=== PATIENT | female | born 1960 | race Two or more races ===

== ENCOUNTER 2022-09-18 08:05 | Outpatient (RCR) | payer OTHER, SELFPAY ==
--- NOTE | ~2022-09-18 | XR_ITS ---
EXAMINATION: XR FOOT, RIGHT CLINICAL INFORMATION: Nonhealing wound COMPARISON: None available. TECHNIQUE: AP, lateral, and oblique views of the right foot. FINDINGS: Band-Aid, soft tissue swelling around the great toe subtle radiolucencies in the diaphysis of the distal phalanx and middle phalanx raising concern for possible early osteomyelitis. No subcutaneous emphysema. Bone alignment satisfactory. Underlying mild DJD. There are small posterior and inferior calcaneal spurs. XR/XR foot RT min 3V IMPRESSION: * Subtle radiolucencies in the diaphysis of the distal phalanx and middle phalanx raising concern for possible early osteomyelitis. MRI could be utilized for further investigation if clinically indicated. * Underlying mild DJD.
[2022-10-23 09:28] LABS: MANUAL DIFF FLAG NO
[2022-10-23 09:39] LABS: Basophils Absolute Auto 0.1 X10*3/uL (0.0-0.2); Basophils Percent Auto 0.5 % (0-2); Eosinophils Absolute Auto 0.2 X10*3/uL (0.0-0.4); Eosinophils Percent Auto 2.3 % (0-4); Hematocrit 40.1 % (37.0-47.0); Hemoglobin 12.6 g/dl (12.0-16.0); Imm Gran Abs Auto 0.04 X10*3/uL (0.00-0.03); Imm Gran Pct Auto 0.4 % (0.0-0.4); Lymphocytes Absolute Auto 3.3 X10*3/uL (1.2-4.9); Lymphocytes Percent Auto 32.8 % (20-40); Mean Corpuscular HGB Conc 31.4 g/dl (31.0-35.0); Mean Corpuscular Hemoglobin 26.6 pg (27.0-33.0); Mean Corpuscular Volume 84.6 fL (80.0-98.0); Mean Platelet Volume 10.9 fL (9.4-12.3); Monocytes Absolute Auto 0.5 X10*3/uL (0.1-1.2); Monocytes Percent Auto 5.1 % (2-11); Neutrophils Absolute Auto 5.9 x10*3/uL (2.0-8.3); Neutrophils Percent Auto 58.9 % (45-73); Platelet Count 222 X10*3/uL (160-400); Red Blood Count 4.74 X10*6/uL (4.20-5.50); Red Cell Distribution Width 17.1 % (11.0-16.0)
[2022-10-23 09:48] LABS: Estimated Average Glucose 166 mg/dL; Hemoglobin A1c % 7.4 %
[2022-10-23 10:36] LABS: Anion Gap 14 (12-20); Blood Urea Nitrogen 25 mg/dL (9-16); C Reactive Protein 2.13 mg/dL (< or = 0.50); Carbon Dioxide 27 mmol/L (22-29); Chloride 103 mmol/L (96-108); Estimated Glomerular Filt Rate 41; Glucose Random 136 mg/dL (60-115); Potassium 3.8 mmol/L (3.3-5.1); Sodium 140 mmol/L (135-145)
[2022-10-23 10:48] LABS: Erythrocyte Sedimentation Rate 51 MM/HR (0-20)
== END 2023-05-15 14:38 | disposition home or self-care (01) ==
LOC: HO.WCC 08:05
PROVIDERS: PCP Internal Medicine; Visit Provider Physician Assistant
DX: Z09 Encounter for follow-up examination after completed treatment for conditions other than malignant neoplasm (principal); E10.40 Type 1 diabetes mellitus with diabetic neuropathy, unspecified; I10 Essential (primary) hypertension; F17.210 Nicotine dependence, cigarettes, uncomplicated; Z86.31 Personal history of diabetic foot ulcer
CPT/HCPCS: 11042; 15275; 36415; 73630; 80048; 83036; 84134; 85025; 85652; 86140; 99212; Q4187

== ENCOUNTER 2023-06-10 18:12 | Inpatient (IN) | payer OTHER, SELFPAY ==
--- NOTE | ~2023-06-10 | XR_ITS ---
EXAMINATION: XR FOOT, RIGHT CLINICAL INFORMATION: Pain COMPARISON: Right foot radiograph from 10/23/2022 TECHNIQUE: AP, lateral, and oblique views of the right foot. FINDINGS: No acute visible fracture or dislocation. Multi joint arthritic changes. Plantar calcaneal heel spur. Achilles tendon enthesopathy. Spurring the dorsal midfoot. Joint spaces and alignment are maintained. Soft tissues are unremarkable. XR/XR foot RT min 3V IMPRESSION: 1. No acute visible fracture or dislocation. 2. Multi joint arthritic changes. 3. Plantar calcaneal heel spur. 4. Achilles tendon enthesopathy.
--- NOTE | ~2023-06-10 | CT_ITS ---
EXAMINATION: CT FOOT WITH CONTRAST, RIGHT CLINICAL INFORMATION: Rule out osteomyelitis. COMPARISON: Radiograph dated 06/10/2023 TECHNIQUE: Multidetector volumetric imaging was obtained through the right foot following intravenous administration of 85 mL Omnipaque 350. Multiplanar reformatted images in coronal and sagittal orientations were submitted. This CT examination was performed using dose optimization techniques as appropriate, variously including the following: *Automated exposure control *Adjustment of mA and/or kV according to patient size (this includes techniques or standardized protocols for targeted exams where dose is matched to indication/reason for exam; i.e. extremities or head) *Use of iterative reconstruction technique DLP: 167 mGy-cm FINDINGS: There is a wound at the plantar aspect of the great toe proximal phalanx with extension into the first intermetatarsal space there is a peripherally enhancing collection in the wound measuring 2 x 0.7 x 0.6 cm. No additional collections are identified. Surrounding soft tissues are swollen and edematous. The skin is thickened. Bone mineralization appears normal. No appreciable sites of focal osteolysis are identified in the underlying first and second metatarsals and phalanges. There is mild osteoarthritis in multiple joints in the forefoot including the first MTP, great toe IP, and other interphalangeal joints. No erosions. Mild osteoarthritis in the naviculocuneiform joints. Talocrural and subtalar joints appear relatively well-preserved. There is diffuse fatty atrophy of the intrinsic foot musculature. Tendons are unremarkable. No tenosynovitis identified. CT/CT foot RT w IV con IMPRESSION: 1. A 2 cm abscess in the plantar soft tissues of the great toe proximal phalanx with extension into the first intermetatarsal space. No CT findings of osteomyelitis. 2. Mild multifocal osteoarthritis in the forefoot. 3. Diffuse fatty atrophy of the intrinsic foot musculature.
[2023-06-10 18:45] VITALS: BP 149/94; PULSE 117; RESP 16; TEMP 37.1; O2SAT 94; BMI 39.9
--- NOTE | 2023-06-10 18:48 | ED.GENADULT ---
HPI - General Adult General Chief complaint: General Medical Stated complaint: skin graft on foot, red and swollen. t-1 Time Seen by Provider: 06/10/23 20:04 Source: patient and family Mode of arrival: ambulatory History of Present Illness HPI narrative: 62-year-old female who arrives with complaints of right foot pain and swelling with redness and the pain has increased and she reports that it is stabbing in nature she also describes subjective fevers as well as chills. She otherwise denies any shortness of breath or chest pain. Related Data Home Medications Medication Instructions Recorded Confirmed acetaminophen 650 mg 1,300 mg PO BID 06/10/23 06/10/23 tablet,extended release (Tylenol Arthritis Pain) aspirin 81 mg tablet,delayed 81 mg PO DAILY 06/10/23 06/10/23 release atorvastatin 40 mg tablet 40 mg PO DAILY 06/10/23 06/10/23 dulaglutide 4.5 mg/0.5 mL 4.5 mg subcut SA 06/10/23 06/10/23 subcutaneous pen injector (Trulicity) empagliflozin 25 mg tablet 25 mg PO DAILY 06/10/23 06/10/23 (Jardiance) insulin glargine 100 unit/mL (3 15 unit subcut BEDTIME 06/10/23 06/10/23 mL) subcutaneous pen (Lantus Solostar U-100 Insulin) losartan 25 mg tablet 25 mg PO DAILY 06/10/23 06/10/23 metformin 500 mg tablet,extended 500 mg PO DAILY 06/10/23 06/10/23 release 24 hr methadone 10 mg/mL oral 100 mg PO DAILY 06/10/23 concentrate (Methadose) omeprazole 40 mg capsule,delayed 40 mg PO BID 06/10/23 06/10/23 release pregabalin 300 mg capsule 300 mg PO BID 06/10/23 06/10/23 venlafaxine 150 mg 150 mg PO DAILY 06/10/23 06/10/23 capsule,extended release 24 hr venlafaxine 75 mg capsule,extended 75 mg PO DAILY 06/10/23 06/10/23 release 24 hr Allergies Allergy/AdvReac Type Severity Reaction Status Date / Time No Known Allergies Allergy Verified 06/10/23 18:49 Review of Systems Review of Systems: Pertinent positives and negatives as stated in HPI [facility] Past Medical History Source: nursing notes reviewed Social History Social History Smoked in Last 30 Days: Yes Use of substances other than those prescribed or required for medical reasons: No Advance Directives: No Advance Directives Information Provided: No Physical Exam ED Vital Signs: Vital Signs - 24 hr 06/10/23 18:45 Temperature 98.7 F Pulse Rate 117 H Respiratory Rate 16 Blood Pressure 149/94 H Pulse Oximetry 94 Oxygen Delivery Method Room Air BMI result Body Mass Index 39.9 VITAL SIGNS: Reviewed. GENERAL: Elevated BMI, Well developed, well nourished, in no acute distress. HEAD: Normocephalic/atraumatic EYES: PERRLA, EOMI EARS: Ext canals without abnormality NOSE: Nares patent bilateral OROPHARYNX: no oral lesions noted, posterior pharynx clear NECK: Supple, no adenopathy LUNGS: Normal breath sounds. No adventitious sounds or accessory muscle use. SpO2<94> CARDIOVASCULAR: Regular rate and rhythm without noted murmurs ABDOMEN: Soft, non-tender, non-distended with bowel sounds. MUSCULOSKELETAL: No tenderness, deformities, or effusions noted on gross inspection. EXTREMITIES: No cyanosis, clubbing or edema. RLE: Erythematous, swollen, palpable DP and PT, noted wound to the plantar surface of the great MTP SKIN: Inspection of the skin reveals no rashes NEUROLOGIC: Alert and oriented x 4. Strength and sensation to light touch were grossly intact x 4. Course Course Course Narrative: 62-year-old female presents for evaluation of right foot pain and swelling for the last 2 days. She has a history of diabetic ulcer to the area. Patient reports a recent skin graft the right foot a little over 1 month ago. Plan for labs including inflammatory markers, blood cultures and an x-ray. Medications Administered Generic Name Dose Route Start Last Admin Trade Name Freq PRN Reason Stop Dose Admin Piperacillin Sod/Tazobactam 100 mls @ 200 mls/hr 06/10/23 22:00 06/10/23 21:48 Sod 4.5 gm/ Sodium Chloride IV 200 mls/hr Q6H TAMIE Administration Sodium Chloride 1,000 mls @ 999 mls/hr 06/10/23 21:14 06/10/23 21:48 Ns IV 06/10/23 22:14 999 mls/hr .Q1H1M ONE Administration Medical Decision Making Medical Decision Making [facility] Narrative: 2100: I suspect infection this is a 62-year-old female with history and clinical presentation consistent with right foot cellulitis and suspected infection especially given underlying history of diabetes and wound to the plantar surface. I reviewed all investigations and hematologic indices there is significant for leukocytosis with left shift but no anemia or thrombocytopenia. Chemistry indices are grossly within normal limits without XOCHITL or electrolytes/acute liver enzyme abnormalities, CRP-7.58. Patient to receive double antibiotics. X-ray of right foot without acute findings and otherwise my interpretation is in agreement with radiology's impression. 1: I discussed case with inpatient hospitalist who accepts admission. Differential Diagnosis Differential Diagnoses: The differential diagnosis associated with the presentation includes Please see the discussion above Admission/Observation Consideration of admission/observation: Escalation of care including admission/observation considered Please see the discussion above Consult Healthcare Provider Management of the patient was discussed with: Hospitalist Please see the discussion above Lab Data [facility] Lab Attestation statement: I reviewed the patient's lab results. Please see the discussion above 06/10/23 19:18 06/10/23 19:18 Labs: Lab Results 06/10/23 Range/Units 19:18 WBC 14.5 H (4.8-10.8) X10*3/uL RBC 5.03 (4.20-5.50) X10*6/uL Hgb 12.9 (12.0-16.0) g/dl Hct 41.2 (37.0-47.0) % MCV 81.9 (80.0-98.0) fL MCH 25.6 L (27.0-33.0) pg MCHC 31.3 (31.0-35.0) g/dl RDW 15.2 (11.0-16.0) % Plt Count 199 (160-400) X10*3/uL MPV 11.4 (9.4-12.3) fL Immature Gran % (Auto) 0.5 H (0.0-0.4) % Neut % (Auto) 79.4 H (45-73) % Lymph % (Auto) 15.2 L (20-40) % [place] % (Auto) 3.9 (2-11) % Eos % (Auto) 0.7 (0-4) % Baso % (Auto) 0.3 (0-2) % Lymph # (Auto) 2.2 (1.2-4.9) X10*3/uL [place] # (Auto) 0.6 (0.1-1.2) X10*3/uL Eos # (Auto) 0.1 (0.0-0.4) X10*3/uL Baso # (Auto) 0.0 (0.0-0.2) X10*3/uL Abs Immat Gran (auto) 0.07 H (0.00-0.03) X10*3/uL Absolute Neuts (auto) 11.6 H (2.0-8.3) x10*3/uL Absolute Nucleated RBC 0.000 (0.0-0.012) X10*3/uL Nucleated RBC % (auto) 0.0 (0.0-0.2) /100WBC Smear Tech's Comments VERIFIED ESR 51 H (0-20) MM/HR Sodium 136 (135-145) mmol/L Potassium 4.3 (3.3-5.1) mmol/L Chloride 101 (96-108) mmol/L Carbon Dioxide 26 (22-29) mmol/L Anion Gap 13 (12-20) BUN 15 (9-16) mg/dL Creatinine 1.06 (0.5-1.4) mg/dL Estim Creat Clear Calc 62.0 Estimated GFR 52 Random Glucose 160 H (60-115) mg/dL Lactic Acid 1.9 (0.5-2.0) mmol/L Calcium 9.3 (8.4-10.2) mg/dL Total Bilirubin 0.4 (0.0-1.0) mg/dL AST 10 (5-31) U/L ALT 11 (0-31) U/L Alkaline Phosphatase 134 H (39-117) U/L C-Reactive Protein 7.58 H (< or = 0.50) mg/dL Total Protein 8.0 (6.5-8.0) g/dL Albumin 3.7 (3.5-5.0) g/dL Lipase 9 (8-78) U/L Radiology Impression Discussion of test interpretation with radiology: I have reviewed the radiologist's reading. Radiologist Impression: Please see the discussion above External Record Review External record reviewed: Outpatient record, Prior outpatient labs and Prior outpatient radiology Chronic Conditions Patient?s care impacted by: Diabetes and Hypertension Critical Care Time Critical Care Time Critical Care Time: Yes Total Critical Care Time: 30 Attestation: I personally attest to this time spent taking care of the patient. Discharge Plan Discharge Clinical Impression: Sepsis, Cellulitis of foot, right, Non-healing ulcer Patient Disposition: Admitted As Inpatient
[2023-06-10 19:29] LABS: Lymphocytes Absolute Auto 2.2 X10*3/uL (1.2-4.9); PLT CLUMP 1; Red Cell Distribution Width 15.2 % (11.0-16.0); SCAN SMEAR FLAG 1
[2023-06-10 19:30] LABS: Basophils Percent Auto 0.3 % (0-2); Eosinophils Absolute Auto 0.1 X10*3/uL (0.0-0.4); Eosinophils Percent Auto 0.7 % (0-4); Hematocrit 41.2 % (37.0-47.0); Hemoglobin 12.9 g/dl (12.0-16.0); Imm Gran Abs Auto 0.07 X10*3/uL (0.00-0.03); Imm Gran Pct Auto 0.5 % (0.0-0.4); Lymphocytes Percent Auto 15.2 % (20-40); MANUAL DIFF FLAG SCAN; Mean Corpuscular HGB Conc 31.3 g/dl (31.0-35.0); Mean Corpuscular Hemoglobin 25.6 pg (27.0-33.0); Mean Corpuscular Volume 81.9 fL (80.0-98.0); Mean Platelet Volume 11.4 fL (9.4-12.3); Monocytes Absolute Auto 0.6 X10*3/uL (0.1-1.2); Monocytes Percent Auto 3.9 % (2-11); Neutrophils Absolute Auto 11.6 x10*3/uL (2.0-8.3); Neutrophils Percent Auto 79.4 % (45-73); Red Blood Count 5.03 X10*6/uL (4.20-5.50)
[2023-06-10 19:43] LABS: Lactic Acid 1.9 mmol/L (0.5-2.0)
[2023-06-10 19:48] LABS: Alanine Aminotransferase 11 U/L (0-31); Albumin Level 3.7 g/dL (3.5-5.0); Alkaline Phosphatase 134 U/L (39-117); Anion Gap 13 (12-20); Aspartate Amino Transferase 10 U/L (5-31); Bilirubin Total 0.4 mg/dL (0.0-1.0); Blood Urea Nitrogen 15 mg/dL (9-16); C Reactive Protein 7.58 mg/dL (< or = 0.50); Calcium 9.3 mg/dL (8.4-10.2); Carbon Dioxide 26 mmol/L (22-29); Chloride 101 mmol/L (96-108); Estimated Glomerular Filt Rate 52; Glucose Random 160 mg/dL (60-115); Lipase 9 U/L (8-78); Potassium 4.3 mmol/L (3.3-5.1); Sodium 136 mmol/L (135-145)
[2023-06-10 19:57] LABS: White Blood Count 14.5 X10*3/uL (4.8-10.8)
[2023-06-10 19:59] LABS: Platelet Count 199 X10*3/uL (160-400)
[2023-06-10 20:00] LABS: SLIDE REVIEW VERIFIED
[2023-06-10 20:01] LABS: Erythrocyte Sedimentation Rate 51 MM/HR (0-20)
--- NOTE | 2023-06-10 21:14 | P.HPHOSP_ITS ---
History of Present Illness Date of Service: 06/10/23 Chief Complaint: Foot infection This is a 62-year-old female with pertinent history of insulin-dependent diabetes mellitus, mixed hyperlipidemia, essential hypertension, gastroesophageal reflux disease, mood disorder who presents to the emergency department for evaluation of redness and swelling of right foot. Patient states it started 1 day prior to presentation. Also has pain while walking. The redness and swelling has progressed in the last 24 hours. Denies fever but does have associated chills. No purulent drainage from the right foot. No chest discomfort, palpitations, shortness of breath, abdominal pain, changes in urinary or bowel habits. In the emergency department, patient was found to be septic. Review of Systems 2 Constitutional: Constitutional: Reports fatigue and Reports lethargy Cardiovascular: Cardiovascular: Reports no additional cardiovascular complaints Respiratory: Respiratory: Reports no additional respiratory complaints Gastrointestinal: Gastrointestinal: Reports no additional gastrointestinal complaints Genitourinary: Genitourinary: Reports no additional female genitourinary complaints Musculoskeletal: Musculoskeletal: Reports arthralgias Endocrine: Endocrine: Reports fatigue [facility] Medical History Mood disorder Insulin dependent type 2 diabetes mellitus Essential hypertension Mixed hyperlipidemia Pertinent family history: No family history of early CAD Social History Patient Tobacco Use Status: Never used Tobacco Smoked in Last 30 Days: Yes Use of substances other than those prescribed or required for medical reasons: No Advance Directives: No Advance Directives Information Provided: No Nutrition Risks: No Nutritional Risk Meds Allergies Allergy/AdvReac Type Severity Reaction Status Date / Time No Known Allergies Allergy Verified 06/10/23 18:49 Active Medications: Current Medications Acetaminophen (Acetaminophen 325 Mg Tablet) 650 mg PO Q6H PRN PRN Reason: Pain, Mild (Pain Scale 1-3) Piperacillin Sod/Tazobactam (Sod 3.375 gm/ Sodium Chloride) 50 mls @ 100 mls/hr IV ONCE ONE Stop: 06/10/23 21:38 Vancomycin HCl (Vancomycin/Ns) 2,000 mg in 500 mls @ 250 mls/hr IV ONCE ONE Stop: 06/10/23 23:14 Melatonin (Melatonin 3 Mg Tablet) 6 mg PO BEDTIME PRN PRN Reason: Insomnia Ondansetron HCl (Ondansetron Hcl 4 Mg/2 Ml Vial) 4 mg IVPUSH Q8H PRN PRN Reason: Nausea and Vomiting Pharmacy Consult (Consult Rx Vancomycin Dosing) 1 each MISCELLANE DAILY PRN PRN Reason: Consult order Sodium Chloride (0.9 % Sodium Chloride Flush 3 Ml Syringe) 3 ml IVFLUSH [facility] Home Medications Medication Instructions Recorded Confirmed Last Taken Type acetaminophen 650 mg 1,300 mg PO BID 06/10/23 06/10/23 06/10/23 History tablet,extended release (Tylenol Arthritis Pain) aspirin 81 mg tablet,delayed 81 mg PO DAILY 06/10/23 06/10/23 06/10/23 History release atorvastatin 40 mg tablet 40 mg PO DAILY 06/10/23 06/10/23 06/10/23 History dulaglutide 4.5 mg/0.5 mL 4.5 mg subcut SA 06/10/23 06/10/23 06/08/23 History subcutaneous pen injector (Trulicity) empagliflozin 25 mg tablet 25 mg PO DAILY 06/10/23 06/10/23 06/10/23 History (Jardiance) insulin glargine 100 unit/mL (3 15 unit subcut BEDTIME 06/10/23 06/10/23 06/09/23 History mL) subcutaneous pen (Lantus Solostar U-100 Insulin) losartan 25 mg tablet 25 mg PO DAILY 06/10/23 06/10/23 06/10/23 History metformin 500 mg tablet,extended 500 mg PO DAILY 06/10/23 06/10/23 06/10/23 History release 24 hr methadone 10 mg/mL oral 100 mg PO DAILY 06/10/23 Unknown History concentrate (Methadose) omeprazole 40 mg capsule,delayed 40 mg PO BID 06/10/23 06/10/23 06/10/23 History release pregabalin 300 mg capsule 300 mg PO BID 06/10/23 06/10/23 06/10/23 History venlafaxine 150 mg 150 mg PO DAILY 06/10/23 06/10/23 06/10/23 History capsule,extended release 24 hr venlafaxine 75 mg capsule,extended 75 mg PO DAILY 06/10/23 06/10/23 06/10/23 History release 24 hr Physical Exam 2 Vital Signs and Narrative: Vital Signs: Last Vital Signs Temp 98.7 F 06/10/23 18:45 Pulse 117 H 06/10/23 18:45 Resp 16 06/10/23 18:45 BP 149/94 H 06/10/23 18:45 Pulse Ox 94 06/10/23 18:45 O2 Del Method Room Air 06/10/23 18:45 BMI result Body Mass Index 39.9 Middle-aged obese female lying in bed in no distress Neck supple, no JVD Regular rate and rhythm, S1-S2 heard Regular breath sounds bilaterally, no wheezing or crackles appreciated Abdomen soft nontender, no guarding, no rigidity Patient is awake, alert and oriented to self, place, time and person ; no focal motor deficit Musculoskeletal: Right foot with erythema, swelling Psych: Normal mood No pedal edema Results Labs 06/10/23 19:18 06/10/23 19:18 Labs: Laboratory Results - last 24 hr 06/10/23 19:18 MCV 81.9 MCH 25.6 L MCHC 31.3 RDW 15.2 Plt Count 199 MPV 11.4 Immature Gran % (Auto) 0.5 H Neut % (Auto) 79.4 H Lymph % (Auto) 15.2 L [place] % (Auto) 3.9 Eos % (Auto) 0.7 Baso % (Auto) 0.3 Lymph # (Auto) 2.2 [place] # (Auto) 0.6 Eos # (Auto) 0.1 Baso # (Auto) 0.0 Abs Immat Gran (auto) 0.07 H Absolute Neuts (auto) 11.6 H Absolute Nucleated RBC 0.000 Nucleated RBC % (auto) 0.0 Smear Tech's Comments VERIFIED ESR 51 H Anion Gap 13 Estim Creat Clear Calc 62.0 Estimated GFR 52 Random Glucose 160 H Lactic Acid 1.9 Calcium 9.3 Total Bilirubin 0.4 AST 10 ALT 11 Alkaline Phosphatase 134 H C-Reactive Protein 7.58 H Total Protein 8.0 Albumin 3.7 Lipase 9 Imaging Radiologist's Impressions: Impressions Foot X-Ray 06/10/23 19:45 IMPRESSION: 1. No acute visible fracture or dislocation. 2. Multi joint arthritic changes. 3. Plantar calcaneal heel spur. 4. Achilles tendon enthesopathy. Assessment and Plan (1) Sepsis: Status: Acute (2) Cellulitis of foot, right: Status: Acute Plan This is a 62-year-old female with pertinent history of insulin-dependent diabetes mellitus, mixed hyperlipidemia, essential hypertension, gastroesophageal reflux disease, mood disorder who presents to the emergency department for evaluation of redness and swelling of right foot. #. Sepsis due to right foot cellulitis: Resuscitated with IV crystalloids. Initiating empiric IV antibiotics. Lactic acid and blood culture obtained #. Insulin-dependent diabetes mellitus: Reduce basal home insulin. Initiating Accu-Cheks with sliding scale insulin #. Essential hypertension: Hold antihypertensives the setting of sepsis #. Mixed hyperlipidemia: On statin #. Mood disorder: Continue home mood stabilizers #. Gastroesophageal reflux disease: On PPI #. Obesity: Counseled regarding diet and exercise #. FIGUEROA: Noncompliant with CPAP at home Med rec pending DVT prophylaxis: Lovenox Admit as inpatient and will require two night minimum hospital stay for IV antibiotics Quality Stroke Does the patient have a stroke diagnosis?: No VTE Prior VTE?: No VTE Risk Level:: Medical - moderate - high VTE Device Contraindication: Treatment Not Indicated VTE Drug Contraindication: N/A - Med Ordered
--- NOTE | 2023-06-10 21:27 | PHA.MEDREC ---
Pharmacy Consult ? Medication Reconciliation Pharmacy has completed the medication reconciliation. Patient reported medications. Report methadone from 100 mg from [facility] and that she took her AM dose, RN will need to verify dose in the morning. Sena Dennison, PaolaD
--- NOTE | 2023-06-10 21:30 | PC.NURSE ---
pt a&ox4, respirations even and unlabored. pt reports having sudden onset of right foot pain since yesterday. pt reports previously she had a skin graft on the right foot due to a diabetic foot ulcer. pt right foot red and warm to touch, pt left calf has a red area that is warm to touch that pt denies pain to. pt denies n/v/d and chest pain.
[2023-06-10] MEDS: 0.9 % Sodium Chloride 1,000 ML 999 ML IV (21:48)
[2023-06-10] MEDS: Piperacillin Sodium/Tazobactam 4.5 GM in 0.9 % Sodium Chloride 100 ML IV (21:48)
--- NOTE | 2023-06-10 22:24 | PHA.PROG ---
Admission Date/Time: June 10, 2023 21:12 Indication: Cellulitis Weight in k.058 kg Adjusted body weight in K.2 kg [place] body weight in K.4 kg Obesity Dosing Indication % IBW: 196% Serum Creatinine - Last 168 Hours 06/10/23 19:18 Creatinine 1.06 Estimated CrCl and GFR - Last 168 Hours 06/10/23 19:18 Estim Creat Clear Calc 62.0 Estimated GFR 52 Vancomycin Loading Dose: 2000 mg Current Vancomycin Dosing Regimen: 750 mg Q12H Date and Time for next Vancomycin Level to be drawn: 06/12 @ 0900 Pharmacist Comments on Vancomycin Plan: patient to received the load in the ER 06/10 @ 2230 Maintenance dose vancomycin 750 mg Q12H is scheduled to start 06/11 @ 750 mg. Patient is obese with %IBW > 130% therefore careful monitoring is required due to vancomycin high volume of distrubtion. Current predict AUC due to obesity is 586 with a trugh of 19.3 Pharmacy will monitor renal function daily Level is scheduled for prior to the 4th dose Sena Dennison PharmD Vancomycin dosing will take advantage of [employer] as a clinical decision support tool that uses Bayesian modeling to calculate individual patient's pharmacokinetic parameters and forecast the patient's drug concentration time course with the target goal AUC 24 range of 400 - 600 mg/L/hr.
[2023-06-10] MEDS: vancomycin/NS 2,000 MG/500 ML PLAST..BAG 250 MG IV (22:28)
--- NOTE | 2023-06-10 22:28 | PC.NURSE ---
delay in antibiotic ad,in d/t pt only having one IV access.
[2023-06-10 22:47] VITALS: BP 149/71; PULSE 95; RESP 20; TEMP 37.7
--- NOTE | 2023-06-10 22:52 | PC.NURSE ---
report given to overflow nurse.
[2023-06-10 23:41] VITALS: BP 167/81; PULSE 95; RESP 20; TEMP 37.3; O2SAT 96
[2023-06-10 23:52] LABS: Glucose, Whole Blood 121 mg/dL (60-115)
[2023-06-11] MEDS: Acetaminophen 325 MG TABLET 650 MG PO ×2 (00:06→08:42)
[2023-06-11] MEDS: Melatonin 3 MG TABLET 6 MG PO (00:06)
[2023-06-11] MEDS: Insulin Glargine,Hum.rec.anlog 100 UNIT/ML 10 ML VIAL 12 UNIT SUBCUT (00:08)
[2023-06-11] MEDS: 0.9 % Sodium Chloride Flush 3 ML SYRINGE IVFLUSH ×3 (00:12→16:53)
--- NOTE | 2023-06-11 04:22 | PC.NURSE ---
Scheduled 4.5mg zosyn not stocked in overflow pyxis. Main ED notified and requested delivery 04:00 for administration.
[2023-06-11] MEDS: Piperacillin Sodium/Tazobactam 4.5 GM in 0.9 % Sodium Chloride 100 ML IV ×4 (04:38→21:38)
[2023-06-11 04:58] VITALS: BP 145/69; PULSE 82; RESP 18; TEMP 36.3; O2SAT 96
[2023-06-11 05:03] LABS: MANUAL DIFF FLAG NO
[2023-06-11 05:07] LABS: Basophils Percent Auto 0.4 % (0-2); Eosinophils Absolute Auto 0.1 X10*3/uL (0.0-0.4); Eosinophils Percent Auto 1.6 % (0-4); Hematocrit 35.9 % (37.0-47.0); Hemoglobin 11.3 g/dl (12.0-16.0); Imm Gran Abs Auto 0.02 X10*3/uL (0.00-0.03); Imm Gran Pct Auto 0.3 % (0.0-0.4); Lymphocytes Absolute Auto 2.3 X10*3/uL (1.2-4.9); Lymphocytes Percent Auto 29.6 % (20-40); Mean Corpuscular HGB Conc 31.5 g/dl (31.0-35.0); Mean Corpuscular Hemoglobin 25.5 pg (27.0-33.0); Mean Platelet Volume 10.6 fL (9.4-12.3); Monocytes Absolute Auto 0.4 X10*3/uL (0.1-1.2); Monocytes Percent Auto 5.6 % (2-11); Neutrophils Absolute Auto 4.9 x10*3/uL (2.0-8.3); Neutrophils Percent Auto 62.5 % (45-73); Platelet Count 184 X10*3/uL (160-400); Red Blood Count 4.43 X10*6/uL (4.20-5.50); Red Cell Distribution Width 15.1 % (11.0-16.0); White Blood Count 7.9 X10*3/uL (4.8-10.8)
[2023-06-11 05:19] LABS: Anion Gap 13 (12-20); Blood Urea Nitrogen 13 mg/dL (9-16); Calcium 8.4 mg/dL (8.4-10.2); Carbon Dioxide 22 mmol/L (22-29); Chloride 108 mmol/L (96-108); Creatinine Clr Calc Pharmacy 73.8; Estimated Glomerular Filt Rate > 60; Glucose Random 144 mg/dL (60-115); Potassium 3.4 mmol/L (3.3-5.1); Sodium 140 mmol/L (135-145)
--- NOTE | 2023-06-11 06:04 | PC.NURSE ---
Patient arrived to ED overflow at 23:26 from main ED/[facility], awaiting bed assignment, admitted for right foot cellulitis. Pt is A&Ox4. RT foot red and hot to touch. +pp/cms. Pt is a standby assist to nearby br to void. Pt on zosyn and vancomycin given via intact and patent right wrist/forearm #20 IV. Medicated with ordered tylenol for foot pain with +effect, otherwise denies acute complaints. Pt sleeping in bed for majority of care, Breathing is even and unlabored without distress on RA Spo2 96%. HS poc on arrival 121, given 12 units ordered lantus with snack provided per patient request. -n/v. Bed alarm on and safety measures in place. Pt educated network operations project manager randolph. Will continue to monitor for remainder of medical underwriter's scheduled shift.
[2023-06-11 07:39] LABS: Glucose, Whole Blood 104 mg/dL (60-115)
[2023-06-11] MEDS: Enoxaparin Sodium 40 MG/0.4 ML SYRINGE SUBCUT (08:43)
--- NOTE | 2023-06-11 08:53 | HE.PHANOTE ---
VANCO DOSE ADJUSTMENT BASED ON SCR DOSE CONTINUED AT 750 Q 12. NEXT TROUGH 06/12 @ 0900
[2023-06-11 09:36] VITALS: BP 154/71; PULSE 91; RESP 15; TEMP 36.1; O2SAT 98
--- NOTE | 2023-06-11 09:50 | PC.NURSE ---
pt up to ambulate to the bathroom, pt reports she noted blood to the floor. this RN assessed bottom of pts R foot, noted a small open wound to great toe area. this RN soaked pts foot in a betadine and saline bath, wrapped using 4X4s and flora bandage at this time. bleeding controlled. MD Garcia made aware.
[2023-06-11] MEDS: Atorvastatin Calcium 40 MG TABLET PO (10:37)
[2023-06-11] MEDS: Omeprazole 40 MG CAPSULE.DR PO ×2 (10:37→21:39)
[2023-06-11] MEDS: metFORMIN HCl ER 500 MG TAB.ER.24H PO (10:37)
[2023-06-11] MEDS: Aspirin Enteric Coated 81 MG TABLET.DR PO (10:38)
[2023-06-11] MEDS: Venlafaxine HCl ER 75 MG CAP.ER.24H PO (10:38)
--- NOTE | 2023-06-11 10:41 | HE.PHANOTE ---
RE: methadone Lizzeth David last gave 100mg on 06/08/23; noted that 14 doses were given to [facility]
--- NOTE | 2023-06-11 10:44 | P.PNIM_ITS ---
Subjective Subjective Date of Service: 06/11/23 Interval History: f/u on infect limb wound no complaint of pain, no fever Physical Exam 2 Vital Signs: Vital Signs: Last Vital Signs Temp 97 F 06/11/23 09:36 Pulse 91 06/11/23 09:36 Resp 15 06/11/23 09:36 BP 154/71 H 06/11/23 09:36 Pulse Ox 98 06/11/23 09:36 O2 Del Method Room Air 06/11/23 09:36 BMI result Body Mass Index 39.9 Const: Other: General: AO X 3, no acute distress Resp: CTA bilateral CVS: S1,S2,RRR GI: +BS, NT, no distention Skin: No rash, Right foot with erythema, swelling, open wound to the bottom of her R foot Neuro: motor grossly intact Psych: appropriate affect Musculoskeletal: Objective Data Active Medications Acetaminophen (Acetaminophen 325 Mg Tablet) 650 mg PO Q6H PRN PRN Reason: Pain, Mild (Pain Scale 1-3) Last Admin: 06/11/23 08:42 Dose: 650 mg Documented By: TYAO Aspirin (Aspirin Enteric Coated 81 Mg Tablet.Dr) 81 mg PO DAILY [facility] Last Admin: 06/11/23 10:38 Dose: 81 mg Documented By: TAYO Atorvastatin Calcium (Atorvastatin Calcium 40 Mg Tablet) 40 mg PO DAILY [facility] Last Admin: 06/11/23 10:37 Dose: 40 mg Documented By: TAYO Dextrose (Dextrose 50 % 25 Gm/50 Ml Syringe) 25 gm IVPUSH Q15M PRN; Protocol PRN Reason: per Hypoglycemia Standing Ord. Empagliflozin (Empagliflozin 25 Mg Tablet) 25 mg PO DAILY [facility] Enoxaparin Sodium (Enoxaparin Sodium 40 Mg/0.4 Ml Syringe) 40 mg SUBCUT Q24H [facility] Last Admin: 06/11/23 08:43 Dose: 40 mg Documented By: TAYO Glucose (Glucose Gel 15 Gm Gel..Gram.) 15 gm PO Q15M PRN; Protocol PRN Reason: per Hypoglycemia Standing Ord. Piperacillin Sod/Tazobactam (Sod 4.5 gm/ Sodium Chloride) 100 mls @ 200 mls/hr IV Q6H [facility] Last Infusion: 06/11/23 05:07 Dose: Infused Documented By: PATRICIA Vancomycin HCl 750 mg/ Sodium (Chloride) 265 mls @ 265 mls/hr IV Q12H [facility] Insulin Glargine (Insulin Glargine,Hum.Rec.Anlog 100 Unit/Ml 10 Ml Vial) 12 unit SUBCUT BEDTIME [facility] Last Admin: 06/11/23 00:08 Dose: 12 unit Documented By: PATRICIA Insulin Glargine (Insulin Glargine,Hum.Rec.Anlog 100 Unit/Ml 10 Ml Vial) 15 unit SUBCUT BEDTIME [facility] Insulin Human Lispro (Insulin Lispro 100 Unit/Ml 3 Ml Vial) 0 unit SUBCUT QIDACHS [facility]; Protocol Last Admin: 06/11/23 07:37 Dose: Not Given Documented By: TAYO Non-Admin Reason: No Insulin Coverage Losartan Potassium (Losartan Potassium 25 Mg Tablet) 25 mg PO DAILY [facility]; Protocol Melatonin (Melatonin 3 Mg Tablet) 6 mg PO BEDTIME PRN PRN Reason: Insomnia Last Admin: 06/11/23 00:06 Dose: 6 mg Documented By: PATRICIA Metformin HCl (Metformin Hcl Er 500 Mg Tab.Er.24h) 500 mg PO DAILY [facility] Last Admin: 06/11/23 10:37 Dose: 500 mg Documented By: TAYO Non-Formulary Medication (Dulaglutide [Trulicity]) 4.5 mg SUBCUT SA [facility] Omeprazole (Omeprazole 40 Mg Capsule.Dr) 40 mg PO BID [facility] Last Admin: 06/11/23 10:37 Dose: 40 mg Documented By: TAYO Ondansetron HCl (Ondansetron Hcl 4 Mg/2 Ml Vial) 4 mg IVPUSH Q8H PRN PRN Reason: Nausea and Vomiting Pharmacy Consult (Consult Rx Vancomycin Dosing) 1 each MISCELLANE DAILY PRN PRN Reason: Consult order Pregabalin (Pregabalin 150 Mg Capsule) 300 mg PO BID [facility] Sodium Chloride (0.9 % Sodium Chloride Flush 3 Ml Syringe) 3 ml IVFLUSH QSHIFT [facility] Last Admin: 06/11/23 08:44 Dose: 3 ml Documented By: TAYO Venlafaxine HCl (Venlafaxine Hcl Er 75 Mg Cap.Er.24h) 75 mg PO DAILY [facility] Last Admin: 06/11/23 10:38 Dose: 75 mg Documented By: TAYO Venlafaxine HCl (Venlafaxine Hcl Er 150 Mg Cap.Er.24h) 150 mg PO DAILY [facility] Labs 06/11/23 04:54 06/11/23 04:54 Labs: Laboratory Results - last 24 hr 06/10/23 06/10/23 06/11/23 19:18 23:47 04:54 MCV 81.9 81.0 MCH 25.6 L 25.5 L MCHC 31.3 31.5 RDW 15.2 15.1 Plt Count 199 184 MPV 11.4 10.6 Immature Gran % (Auto) 0.5 H 0.3 Neut % (Auto) 79.4 H 62.5 Lymph % (Auto) 15.2 L 29.6 Glascock % (Auto) 3.9 5.6 Eos % (Auto) 0.7 1.6 Baso % (Auto) 0.3 0.4 Lymph # (Auto) 2.2 2.3 [place]ock # (Auto) 0.6 0.4 Eos # (Auto) 0.1 0.1 Baso # (Auto) 0.0 0.0 Abs Immat Gran (auto) 0.07 H 0.02 Absolute Neuts (auto) 11.6 H 4.9 Absolute Nucleated RBC 0.000 0.000 Nucleated RBC % (auto) 0.0 0.0 Smear Tech's Comments VERIFIED ESR 51 H Anion Gap 13 13 Estim Creat Clear Calc 62.0 73.8 Estimated GFR 52 > 60 POC Glucose 121 H Random Glucose 160 H 144 H Lactic Acid 1.9 Calcium 9.3 8.4 D Total Bilirubin 0.4 AST 10 ALT 11 Alkaline Phosphatase 134 H C-Reactive Protein 7.58 H Total Protein 8.0 Albumin 3.7 Lipase 9 06/11/23 07:35 MCV MCH MCHC RDW Plt Count MPV Immature Gran % (Auto) Neut % (Auto) Lymph % (Auto) Glascock % (Auto) Eos % (Auto) Baso % (Auto) Lymph # (Auto) [place]ock # (Auto) Eos # (Auto) Baso # (Auto) Abs Immat Gran (auto) Absolute Neuts (auto) Absolute Nucleated RBC Nucleated RBC % (auto) Smear Tech's Comments ESR Anion Gap Estim Creat Clear Calc Estimated GFR POC Glucose 104 Random Glucose Lactic Acid Calcium Total Bilirubin AST ALT Alkaline Phosphatase C-Reactive Protein Total Protein Albumin Lipase Assessment and Plan (1) Cellulitis of foot, right: Status: Acute Plan This is a 62-year-old female with pertinent history of insulin-dependent diabetes mellitus, mixed hyperlipidemia, essential hypertension, gastroesophageal reflux disease, mood disorder who presents to the emergency department for evaluation of redness and swelling of right foot. Sepsis due to right foot cellulitis: IV Vanco + Zosyn, ID consult Insulin-dependent diabetes mellitus: Insulin + POC, Essential HTN: Hold antihypertensives the setting of sepsis Mixed hyperlipidemia: On statin Mood disorder: Continue home mood stabilizers Gastroesophageal reflux disease: On PPI Obesity: Counseled regarding diet and exercise FIGUEROA: Noncompliant with CPAP at home DVT prophylaxis: Lovenox need for inpatient: inpatient and will require two night minimum hospital stay for IV antibiotics Quality Stroke Does the patient have a stroke diagnosis?: No VTE Prior VTE?: No VTE Risk Level:: Medical - moderate - high VTE Device Contraindication: Treatment Not Indicated VTE Drug Contraindication: N/A - Med Ordered
[2023-06-11] MEDS: Pregabalin 150 MG CAPSULE 300 MG PO ×2 (11:26→21:39)
[2023-06-11] MEDS: Losartan Potassium 25 MG TABLET PO (11:27)
[2023-06-11] MEDS: Empagliflozin 25 MG TABLET PO (11:27)
[2023-06-11] MEDS: methADONE HCl 20 MG/2 ML ORAL.CONC 100 MG PO (11:28)
[2023-06-11] MEDS: vancomycin HCL 750 MG in 0.9 % Sodium Chloride 250 ML 265 MG IV (11:28)
[2023-06-11 11:55] LABS: Glucose, Whole Blood 161 mg/dL (60-115)
[2023-06-11] MEDS: Insulin Lispro 100 UNIT/ML 3 ML VIAL SUBCUT ×2 (12:01→17:05)
--- NOTE | 2023-06-11 12:37 | MHC.CM.PN ---
PT REPORTS SHE LIVES WITH HER SON AND GRANDDAUGHTER SHE HAS [facility]ILY [facility] RES[facility] AND IS ACTIVE WITH [facility] PT REPORTS SHE HAS A CANE AND A WALKER SHE SAYS SHE HAS A HCP NAMING HER SON AND HER DAUGHTER HER AGENTS-COPY REQUESTED PCP: DEISI CHINCHILLA IMM DELIVERED DCP: [facility] FAM[facility] TO TRANSPORT
--- NOTE | 2023-06-11 16:25 | PC.NURSE ---
[facility] Care [phone]: Patient alert and oriented x 4. Calm and cooperative with care. Receiving Vanc/Zosyn for right foot cellulitis. Right foot swollen and tender to touch with erythema throughout, wound care performed this AM. Tolerated Diabetic diet well with sliding scale insulin in place. Care handed off to Ladonna BOOTH.
[2023-06-11 16:29] VITALS: BP 142/64; PULSE 85; RESP 18; TEMP 36.1; O2SAT 96
[2023-06-11 16:30] LABS: Glucose, Whole Blood 153 mg/dL (60-115)
[2023-06-11 20:42] LABS: Glucose, Whole Blood 148 mg/dL (60-115)
[2023-06-11] MEDS: Insulin Glargine,Hum.rec.anlog 100 UNIT/ML 10 ML VIAL 15 UNIT SUBCUT (21:39)
[2023-06-12 00:39] VITALS: BP 138/72; PULSE 85; RESP 15; TEMP 36.3; O2SAT 95
[2023-06-12] MEDS: vancomycin HCL 750 MG in 0.9 % Sodium Chloride 250 ML 265 MG IV ×3 (00:40→23:04)
[2023-06-12] MEDS: Piperacillin Sodium/Tazobactam 4.5 GM in 0.9 % Sodium Chloride 100 ML IV ×4 (04:27→21:26)
--- NOTE | 2023-06-12 06:08 | PC.NURSE ---
Assumed care pf PT [phone]. PT alert and oriented. PT ambulated to this bathroom independently, gait steady. Wound assessed by this RN- open wound on the bottom of PT's right great toe noted. Wound is dry and no longer bleeding. Wound cleansed and a clean 3x3 with dressing wrap applied to the foot. right wrist IV line patent and intact. PT medicated as per OCT. Report and hand off given to RN, Demesis.
[2023-06-12 06:16] VITALS: BP 148/81; PULSE 82; RESP 15; TEMP 36.1; O2SAT 95
[2023-06-12 06:38] LABS: Creatinine Clr Calc Pharmacy 61.4; Estimated Glomerular Filt Rate 52
[2023-06-12 07:16] LABS: Glucose, Whole Blood 130 mg/dL (60-115)
[2023-06-12] MEDS: Aspirin Enteric Coated 81 MG TABLET.DR PO (08:28)
[2023-06-12] MEDS: methADONE HCl 20 MG/2 ML ORAL.CONC 100 MG PO (08:28)
[2023-06-12] MEDS: Empagliflozin 25 MG TABLET PO (08:28)
[2023-06-12] MEDS: Pregabalin 150 MG CAPSULE 300 MG PO ×2 (08:28→20:29)
[2023-06-12] MEDS: metFORMIN HCl ER 500 MG TAB.ER.24H PO (08:28)
[2023-06-12] MEDS: Venlafaxine HCl ER 150 MG CAP.ER.24H PO (08:28)
[2023-06-12] MEDS: Omeprazole 40 MG CAPSULE.DR PO ×2 (08:28→20:29)
[2023-06-12] MEDS: 0.9 % Sodium Chloride Flush 3 ML SYRINGE IVFLUSH ×3 (08:29→23:07)
[2023-06-12] MEDS: Venlafaxine HCl ER 75 MG CAP.ER.24H PO (08:29)
[2023-06-12] MEDS: Losartan Potassium 25 MG TABLET PO (08:29)
[2023-06-12] MEDS: Atorvastatin Calcium 40 MG TABLET PO (08:29)
[2023-06-12] MEDS: Enoxaparin Sodium 40 MG/0.4 ML SYRINGE SUBCUT (08:56)
[2023-06-12 10:00] LABS: Vancomycin Trough 15.6 mcg/mL (10.0-20.0)
[2023-06-12 11:39] LABS: Glucose, Whole Blood 116 mg/dL (60-115)
[2023-06-12 14:16] VITALS: BP 136/83; PULSE 91; RESP 20; TEMP 36.5; O2SAT 94
--- NOTE | 2023-06-12 15:39 | P.PNIM_ITS ---
Subjective Subjective Date of Service: 06/12/23 Interval History: f/u on infected foot, cellulitis redness is getting better Physical Exam 2 Vital Signs: Vital Signs: Last Vital Signs Temp 97.7 F 06/12/23 14:16 Pulse 91 06/12/23 14:16 Resp 20 06/12/23 14:16 BP 136/83 06/12/23 14:16 Pulse Ox 94 06/12/23 14:16 O2 Del Method Room Air 06/12/23 14:16 BMI result Body Mass Index 39.9 Objective Data Active Medications Acetaminophen (Acetaminophen 325 Mg Tablet) 650 mg PO Q6H PRN PRN Reason: Pain, Mild (Pain Scale 1-3) Last Admin: 06/11/23 08:42 Dose: 650 mg Documented By: TAYO Aspirin (Aspirin Enteric Coated 81 Mg Tablet.) 81 mg PO DAILY [facility] Last Admin: 06/12/23 08:28 Dose: 81 mg Documented By: BREONNA Atorvastatin Calcium (Atorvastatin Calcium 40 Mg Tablet) 40 mg PO DAILY [facility] Last Admin: 06/12/23 08:29 Dose: 40 mg Documented By: BREONNA Dextrose (Dextrose 50 % 25 Gm/50 Ml Syringe) 25 gm IVPUSH Q15M PRN; Protocol PRN Reason: per Hypoglycemia Standing Ord. Empagliflozin (Empagliflozin 25 Mg Tablet) 25 mg PO DAILY [facility] Last Admin: 06/12/23 08:28 Dose: 25 mg Documented By: BREONNA Enoxaparin Sodium (Enoxaparin Sodium 40 Mg/0.4 Ml Syringe) 40 mg SUBCUT Q24H [facility] Last Admin: 06/12/23 08:56 Dose: 40 mg Documented By: BREONNA Glucose (Glucose Gel 15 Gm Gel..Gram.) 15 gm PO Q15M PRN; Protocol PRN Reason: per Hypoglycemia Standing Ord. Piperacillin Sod/Tazobactam (Sod 4.5 gm/ Sodium Chloride) 100 mls @ 200 mls/hr IV Q6H [facility] Last Infusion: 06/12/23 12:13 Dose: Infused Documented By: REILLY Vancomycin HCl 750 mg/ Sodium (Chloride) 265 mls @ 265 mls/hr IV Q12H [facility] Last Infusion: 06/12/23 13:23 Dose: Infused Documented By: REILLY Insulin Glargine (Insulin Glargine,Hum.Rec.Anlog 100 Unit/Ml 10 Ml Vial) 12 unit SUBCUT BEDTIME [facility] Last Admin: 06/11/23 21:21 Dose: Not Given Documented By: JOANNA Non-Admin Reason: Duplicate Order Insulin Glargine (Insulin Glargine,Hum.Rec.Anlog 100 Unit/Ml 10 Ml Vial) 15 unit SUBCUT BEDTIME [facility] Last Admin: 06/11/23 21:39 Dose: 15 unit Documented By: JOANNA Insulin Human Lispro (Insulin Lispro 100 Unit/Ml 3 Ml Vial) 0 unit SUBCUT QIDACHS [facility]; Protocol Last Admin: 06/12/23 11:37 Dose: Not Given Documented By: REILLY Non-Admin Reason: No Insulin Coverage Losartan Potassium (Losartan Potassium 25 Mg Tablet) 25 mg PO DAILY [facility]; Protocol Last Admin: 06/12/23 08:29 Dose: 25 mg Documented By: BREONNA Melatonin (Melatonin 3 Mg Tablet) 6 mg PO BEDTIME PRN PRN Reason: Insomnia Last Admin: 06/11/23 00:06 Dose: 6 mg Documented By: PATRICIA Metformin HCl (Metformin Hcl Er 500 Mg Tab.Er.24h) 500 mg PO DAILY [facility] Last Admin: 06/12/23 08:28 Dose: 500 mg Documented By: BREONNA Methadone HCl (Methadone Hcl 20 Mg/2 Ml Oral.Conc) 100 mg PO DAILY [facility] Last Admin: 06/12/23 08:28 Dose: 100 mg Documented By: BREONNA Non-Formulary Medication (Dulaglutide [Trulicity]) 4.5 mg SUBCUT [facility] Omeprazole (Omeprazole 40 Mg Capsule.Dr) 40 mg PO BID [facility] Last Admin: 06/12/23 08:28 Dose: 40 mg Documented By: BREONNA Ondansetron HCl (Ondansetron Hcl 4 Mg/2 Ml Vial) 4 mg IVPUSH Q8H PRN PRN Reason: Nausea and Vomiting Pharmacy Consult (Consult Rx Vancomycin Dosing) 1 each MISCELLANE DAILY PRN PRN Reason: Consult order Pregabalin (Pregabalin 150 Mg Capsule) 300 mg PO BID [facility] Last Admin: 06/12/23 08:28 Dose: 300 mg Documented By: BROENNA Sodium Chloride (0.9 % Sodium Chloride Flush 3 Ml Syringe) 3 ml IVFLUSH QSHIFT [facility] Last Admin: 06/12/23 08:29 Dose: 3 ml Documented By: BREONNA Venlafaxine HCl (Venlafaxine Hcl Er 75 Mg Cap.Er.24h) 75 mg PO DAILY [facility] Last Admin: 06/12/23 08:29 Dose: 75 mg Documented By: BREONNA Venlafaxine HCl (Venlafaxine Hcl Er 150 Mg Cap.Er.24h) 150 mg PO DAILY [facility] Last Admin: 06/12/23 08:28 Dose: 150 mg Documented By: BREONNA Labs 06/11/23 04:54 06/12/23 05:50 Labs: Laboratory Results - last 24 hr 06/11/23 06/11/23 06/12/23 16:26 20:38 05:50 Estim Creat Clear Calc 61.4 Estimated GFR 52 POC Glucose 153 H 148 H Vancomycin Trough 06/12/23 06/12/23 06/12/23 07:09 09:21 11:36 Estim Creat Clear Calc Estimated GFR POC Glucose 130 H 116 H Vancomycin Trough 15.6 Microbiology Microbiology Results: Microbiology 06/10/23 19:18 Blood Culture - Final Blood - Venous Strep agalactiae (Grp B) 06/10/23 19:16 Blood Culture - Preliminary Blood - Venous No growth after 24 hours. Assessment and Plan (1) Cellulitis of foot, right: Status: Acute Plan 62-year-old female with pertinent history of insulin-dependent diabetes mellitus, mixed hyperlipidemia, essential hypertension, gastroesophageal reflux disease, mood disorder who presents to the emergency department for evaluation of redness and swelling of right foot. Sepsis due to right foot cellulitis and open wound : IV Vanco + Zosyn, ID consult Insulin-dependent diabetes mellitus: Insulin + POC, Essential HTN: Hold antihypertensives the setting of sepsis Mixed hyperlipidemia: On statin Mood disorder: Continue home mood stabilizers Gastroesophageal reflux disease: On PPI Obesity: Counseled regarding diet and exercise FIGUEROA: Noncompliant with CPAP at home DVT prophylaxis: Lovenox need for inpatient: inpatient and will require two night minimum hospital stay for IV antibiotics possible dc tomorrow Quality Stroke Does the patient have a stroke diagnosis?: No VTE Prior VTE?: No VTE Risk Level:: Medical - moderate - high VTE Device Contraindication: Treatment Not Indicated VTE Drug Contraindication: N/A - Med Ordered
[2023-06-12 16:40] LABS: Glucose, Whole Blood 96 mg/dL (60-115)
--- NOTE | 2023-06-12 17:42 | PC.NURSE ---
Assumed patient care at 1500. Patient alert and oriented x3. Denies headache, pain, SOB. R foot ulcer, dry no drainage noted. DSD applied. Zosyn hung per EMAR. Patient ambulated to bathroom independently. Evening POC 96, no coverage, ate 100% of dinner. All needs met.
[2023-06-12 19:51] VITALS: BP 126/69; PULSE 84; RESP 18; TEMP 36.2; O2SAT 95
[2023-06-12 20:20] LABS: Glucose, Whole Blood 161 mg/dL (60-115)
[2023-06-12] MEDS: Acetaminophen 325 MG TABLET 650 MG PO (20:29)
[2023-06-12] MEDS: Insulin Lispro 100 UNIT/ML 3 ML VIAL SUBCUT (20:30)
[2023-06-12] MEDS: Insulin Glargine,Hum.rec.anlog 100 UNIT/ML 10 ML VIAL 15 UNIT SUBCUT (20:30)
--- NOTE | 2023-06-12 20:56 | PC.NURSE ---
This machine sign writer assumed care of this Pt at 1900. Pt A&Ox4, sitting at edge of bed watching TV. Pt reports 6/10 right foot pain. Foot dressing applied by previous RN. Pt medicated per OCT. Pt reports only taking 15 units of Lantus at home, MAR has an additional 12 units, not given. Dr. Watson made aware.
--- NOTE | 2023-06-12 23:50 | PC.NURSE ---
Pt reports IV line leaking . New IV line placed to left wrist, pt tolerated well. ABX given per OCT.
[2023-06-13] MEDS: Piperacillin Sodium/Tazobactam 4.5 GM in 0.9 % Sodium Chloride 100 ML IV ×4 (04:06→21:06)
[2023-06-13 05:58] VITALS: BP 148/76; PULSE 77; RESP 16; TEMP 36.1; O2SAT 93
[2023-06-13 06:25] LABS: Creatinine Clr Calc Pharmacy 63.2; Estimated Glomerular Filt Rate 54
[2023-06-13 07:32] LABS: Glucose, Whole Blood 115 mg/dL (60-115)
[2023-06-13] MEDS: 0.9 % Sodium Chloride Flush 3 ML SYRINGE IVFLUSH ×3 (07:52→21:06)
[2023-06-13] MEDS: methADONE HCl 20 MG/2 ML ORAL.CONC 100 MG PO (07:53)
[2023-06-13] MEDS: Omeprazole 40 MG CAPSULE.DR PO ×2 (07:53→21:05)
[2023-06-13] MEDS: Venlafaxine HCl ER 75 MG CAP.ER.24H PO (07:53)
[2023-06-13] MEDS: metFORMIN HCl ER 500 MG TAB.ER.24H PO (07:54)
[2023-06-13] MEDS: Venlafaxine HCl ER 150 MG CAP.ER.24H PO (07:54)
[2023-06-13] MEDS: Losartan Potassium 25 MG TABLET PO (07:54)
[2023-06-13] MEDS: Aspirin Enteric Coated 81 MG TABLET.DR PO (07:55)
[2023-06-13] MEDS: Pregabalin 150 MG CAPSULE 300 MG PO ×2 (07:55→21:05)
[2023-06-13] MEDS: Atorvastatin Calcium 40 MG TABLET PO (07:55)
[2023-06-13] MEDS: Empagliflozin 25 MG TABLET PO (07:55)
[2023-06-13 08:51] VITALS: BP 138/76; PULSE 82; RESP 18; O2SAT 96
[2023-06-13] MEDS: Enoxaparin Sodium 40 MG/0.4 ML SYRINGE SUBCUT (09:26)
[2023-06-13 09:50] VITALS: BP 143/95; PULSE 87; RESP 18; TEMP 36.4; O2SAT 97
[2023-06-13] MEDS: vancomycin HCL 750 MG in 0.9 % Sodium Chloride 250 ML 265 MG IV ×2 (11:22→22:58)
[2023-06-13 11:34] LABS: Glucose, Whole Blood 142 mg/dL (60-115)
[2023-06-13 15:17] VITALS: BP 146/78; PULSE 88; RESP 18; TEMP 36.7; O2SAT 92
[2023-06-13 15:32] LABS: Glucose, Whole Blood 118 mg/dL (60-115)
--- NOTE | 2023-06-13 15:58 | HO.WOUND ---
Wound Consult: Initial 62yr old female admitted to [facility] [place] on? No06/10/23 21:12- See progress notes and H&P for detailed history. Pt reports she was seeing outpt wound clinic for her right wound but reports it was healed as of April and discharged from the clinic - pt reports approximately a week ago the wound re-opedned. - Pt educated on recommendation to have surgery assess to pare down callus and for pt to return to wound clinic at time of discharge. Pt reports she does not have a oracle security consultant at this time - she reports she will call her insurance for a list of providers that her insurance covers. Right Great Toe wound (Base) Etiology: Diabetic Wound Measurements: see charting for details Wound Bed: moist red tissue noted Drainage / Odor: no odor noted - moderate amount of serosang Edges: ? macerated and unattached and callused [place] wound: ? No Induration, No Fluctuance, No Erythema, No Warmth Pain: denies pain Goals of Treatment: ? Consider surgery consult to pare down callus, pack wound bed with alginate and refer to out pt at time to discharge. Recommendations: 1. Turn and Reposition every 2 hours and as needed for patient comfort. 2. Off Load all bony prominences with use of pillows, wedges and heel boots. 3. Monitor for incontinence and moisture control. 4. Provide adequate and supplemental nutrition. 5.Maintain blood glucose levels per Providers orders. 6. Right Great Toe - Off Load Pressure - Cleanse with saline, pat dry. Lightly pack wound bed with Durafiber [employer] (Silver Alginate), apply dry gauze, ABD pad and gauze wrap. Change Daily while inpatient. At time of d/c refer to Box Sealing Machine Operator and Outpt wound clinic for follow up care. Re-consult wound care Nurse for wound deterioration or wound changes.
--- NOTE | 2023-06-13 16:10 | PC.RT ---
pt refusing cpap for 2 days. cpap pulled from room.
[2023-06-13] MEDS: Nicotine 14 MG PATCH.TD24 TRANSDERMA (16:26)
[2023-06-13 17:12] VITALS: BP 142/94; PULSE 84; RESP 18; TEMP 36.9; O2SAT 96
--- NOTE | 2023-06-13 17:13 | PC.NURSE ---
MD Garcia made aware via tiger text at 17:11 pt appears diaphoretic with no other S&S. Pt is A&Ox4 sitting up in a chair eating dinner. Blood sugar from 15:28 was 118. Vital signs as follows: 98.4, 84HR, 18RR, 142/94 BP, 96% on room air.
[2023-06-13 19:28] VITALS: BP 149/70; PULSE 85; RESP 18; TEMP 36; O2SAT 96
[2023-06-13 20:27] LABS: Glucose, Whole Blood 110 mg/dL (60-115)
[2023-06-13] MEDS: Melatonin 3 MG TABLET 6 MG PO (21:05)
[2023-06-13] MEDS: Insulin Glargine,Hum.rec.anlog 100 UNIT/ML 10 ML VIAL 15 UNIT SUBCUT (21:06)
[2023-06-13] MEDS: Acetaminophen 325 MG TABLET 650 MG PO (21:21)
[2023-06-13 21:30] LABS: Vancomycin Trough 12.5 mcg/mL (10.0-20.0)
--- NOTE | 2023-06-13 21:42 | HE.PHANOTE ---
RE: vanco patients level came back at 12.5. within range for skininfection, continue current dose. next level 06/14 @2100
[2023-06-14 03:40] VITALS: BP 159/82; PULSE 74; RESP 16; TEMP 36.4; O2SAT 97
[2023-06-14] MEDS: Piperacillin Sodium/Tazobactam 4.5 GM in 0.9 % Sodium Chloride 100 ML IV ×2 (03:44→10:01)
--- NOTE | 2023-06-14 05:11 | PC.NURSE ---
Pt unable to tolerate CPAP at bedtime, pt agreed to O2 per cannula, Dr. Watson was infromed and order placed, O2 toelrated at 2L/min via NC while asleep.
[2023-06-14 07:31] VITALS: BP 142/86; PULSE 72; RESP 20; TEMP 36.3; O2SAT 96
[2023-06-14 07:44] LABS: Glucose, Whole Blood 142 mg/dL (60-115)
[2023-06-14] MEDS: Venlafaxine HCl ER 75 MG CAP.ER.24H PO (09:19)
[2023-06-14] MEDS: Venlafaxine HCl ER 150 MG CAP.ER.24H PO (09:19)
[2023-06-14] MEDS: metFORMIN HCl ER 500 MG TAB.ER.24H PO (09:20)
[2023-06-14] MEDS: Aspirin Enteric Coated 81 MG TABLET.DR PO (09:20)
[2023-06-14] MEDS: Atorvastatin Calcium 40 MG TABLET PO (09:20)
[2023-06-14] MEDS: Pregabalin 150 MG CAPSULE 300 MG PO ×2 (09:20→20:45)
[2023-06-14] MEDS: Omeprazole 40 MG CAPSULE.DR PO ×2 (09:21→20:45)
[2023-06-14] MEDS: Empagliflozin 25 MG TABLET PO (09:21)
[2023-06-14] MEDS: Losartan Potassium 25 MG TABLET PO (09:21)
[2023-06-14] MEDS: Enoxaparin Sodium 40 MG/0.4 ML SYRINGE SUBCUT (09:21)
[2023-06-14] MEDS: 0.9 % Sodium Chloride Flush 3 ML SYRINGE IVFLUSH ×2 (09:22→16:06)
[2023-06-14] MEDS: methADONE HCl 20 MG/2 ML ORAL.CONC 100 MG PO (09:23)
[2023-06-14 11:22] LABS: Glucose, Whole Blood 148 mg/dL (60-115)
[2023-06-14] MEDS: vancomycin HCL 750 MG in 0.9 % Sodium Chloride 250 ML 265 MG IV (11:48)
--- NOTE | 2023-06-14 12:58 | PM.CNGS ---
History of Present Illness Consult details Consult date: 06/14/23 <Zulema Waterman PA-C - Last Filed: 06/14/23 13:54> Reason for consult: wound care <RAMAN Jaeger Last Filed: 06/14/23 13:54> Requesting physician: Carson Garcia <Zulema Waterman PA-C Last Filed: 06/14/23 13:54> Narrative: This is a 62-year-old female with PMH significant for insulin-dependent diabetes mellitus, mixed hyperlipidemia, essential hypertension, gastroesophageal reflux disease who presents to the emergency department for evaluation of redness and swelling of the right foot. She reports she was seeing a wound clinic for a right foot wound but reports it was healed as of April and therefor discharged from the clinic. She reports she developed redness, pain and swelling the day before presentation and noticed her wound right foot wound reopened. She presented to the ED for evaluation where she was found to be septic and was admitted to the hospitalist service for treatment of the right foot cellulitis. She has been on IV vanco and zosyn with improvement over the past few days. Wound care was asked to see the patient who recommended a surgical consultation for possible debridement of the right foot wound. <Zulema Waterman PA-C Last Filed: 06/14/23 13:54> Review of Systems Constitutional: Constitutional: Denies chills and Denies fever(s) <RAMAN Jaeger Last Filed: 06/14/23 13:54> ENT: Denies dizziness <RAMAN Jaeger Last Filed: 06/14/23 13:54> Cardiovascular: Cardiovascular: Denies chest pain and Denies dyspnea <RAMAN Jaeger Last Filed: 06/14/23 13:54> Respiratory: Respiratory: Denies cough and Denies dyspnea <RAMAN Jaeger Last Filed: 06/14/23 13:54> Gastrointestinal: Gastrointestinal: Denies diarrhea, Denies nausea and Denies vomiting <RAMAN Jaeger Last Filed: 06/14/23 13:54> Integumentary/Breasts: Skin/Breast: Denies rash <RAMAN Jaeger Last Filed: 06/14/23 13:54> Neurologic: Denies dizziness <RAMAN Jaeger Last Filed: 06/14/23 13:54> [facility] Past Medical History Medical History: Medical History Mood disorder Insulin dependent type 2 diabetes mellitus Essential hypertension Mixed hyperlipidemia <RAMAN Jaeger Last Filed: 06/14/23 13:54> Social History Social History: Social History Household Members: Family Household Members Other:: 3 Housing: House Do you presently have visiting nurse or other home services: Yes Patient Tobacco Use Status: Current everyday Tobacco user Tobacco use type: Cigarette Cigarettes Per Day: 10 e-Cigarette/Vaping Use: Currently Using Advance Directives Date on File: 06/13/23 service: No <RAMAN Jaeger Last Filed: 06/14/23 13:54> Meds Allergies/Adverse reactions: Allergies Allergy/AdvReac Type Severity Reaction Status Date / Time No Known Allergies Allergy Verified 06/10/23 18:49 <RAMAN Jaeger Last Filed: 06/14/23 13:54> Active Medications: Current Medications Acetaminophen (Acetaminophen 325 Mg Tablet) 650 mg PO Q6H PRN PRN Reason: Pain, Mild (Pain Scale 1-3) Last Admin: 06/13/23 21:21 Dose: 650 mg Aspirin (Aspirin Enteric Coated 81 Mg Tablet.Dr) 81 mg PO DAILY [facility] Last Admin: 06/14/23 09:20 Dose: 81 mg Atorvastatin Calcium (Atorvastatin Calcium 40 Mg Tablet) 40 mg PO DAILY [facility] Last Admin: 06/14/23 09:20 Dose: 40 mg Dextrose (Dextrose 50 % 25 Gm/50 Ml Syringe) 25 gm IVPUSH Q15M PRN; Protocol PRN Reason: per Hypoglycemia Standing Ord. Empagliflozin (Empagliflozin 25 Mg Tablet) 25 mg PO DAILY [facility] Last Admin: 06/14/23 09:21 Dose: 25 mg Enoxaparin Sodium (Enoxaparin Sodium 40 Mg/0.4 Ml Syringe) 40 mg SUBCUT Q24H [facility] Last Admin: 06/14/23 09:21 Dose: 40 mg Glucose (Glucose Gel 15 Gm Gel..Gram.) 15 gm PO Q15M PRN; Protocol PRN Reason: per Hypoglycemia Standing Ord. Piperacillin Sod/Tazobactam (Sod 4.5 gm/ Sodium Chloride) 100 mls @ 200 mls/hr IV Q6H [facility] Last Infusion: 06/14/23 11:05 Dose: Infused Vancomycin HCl 750 mg/ Sodium (Chloride) 265 mls @ 265 mls/hr IV Q12H [facility] Last Admin: 06/14/23 11:48 Dose: 265 mls/hr Insulin Glargine (Insulin Glargine,Hum.Rec.Anlog 100 Unit/Ml 10 Ml Vial) 12 unit SUBCUT BEDTIME [facility] Last Admin: 06/13/23 21:23 Dose: Not Given Insulin Glargine (Insulin Glargine,Hum.Rec.Anlog 100 Unit/Ml 10 Ml Vial) 15 unit SUBCUT BEDTIME [facility] Last Admin: 06/13/23 21:06 Dose: 15 unit Insulin Human Lispro (Insulin Lispro 100 Unit/Ml 3 Ml Vial) 0 unit SUBCUT QIDACHS [facility]; Protocol Last Admin: 06/14/23 12:20 Dose: Not Given Losartan Potassium (Losartan Potassium 25 Mg Tablet) 25 mg PO DAILY [facility]; Protocol Last Admin: 06/14/23 09:21 Dose: 25 mg Melatonin (Melatonin 3 Mg Tablet) 6 mg PO BEDTIME PRN PRN Reason: Insomnia Last Admin: 06/13/23 21:05 Dose: 6 mg Metformin HCl (Metformin Hcl Er 500 Mg Tab.Er.24h) 500 mg PO DAILY [facility] Last Admin: 06/14/23 09:20 Dose: 500 mg Methadone HCl (Methadone Hcl 20 Mg/2 Ml Oral.Conc) 100 mg PO DAILY [facility] Last Admin: 06/14/23 09:23 Dose: 100 mg Non-Formulary Medication (Dulaglutide [Trulicity]) 4.5 mg SUBCUT SA [facility] Omeprazole (Omeprazole 40 Mg Capsule.Dr) 40 mg PO BID [facility] Last Admin: 06/14/23 09:21 Dose: 40 mg Ondansetron HCl (Ondansetron Hcl 4 Mg/2 Ml Vial) 4 mg IVPUSH Q8H PRN PRN Reason: Nausea and Vomiting Pharmacy Consult (Consult Rx Vancomycin Dosing) 1 each MISCELLANE DAILY PRN PRN Reason: Consult order Pregabalin (Pregabalin 150 Mg Capsule) 300 mg PO BID [facility] Last Admin: 06/14/23 09:20 Dose: 300 mg Sodium Chloride (0.9 % Sodium Chloride Flush 3 Ml Syringe) 3 ml IVFLUSH QSHIFT [facility] Last Admin: 06/14/23 09:22 Dose: 3 ml Venlafaxine HCl (Venlafaxine Hcl Er 75 Mg Cap.Er.24h) 75 mg PO DAILY [facility] Last Admin: 06/14/23 09:19 Dose: 75 mg Venlafaxine HCl (Venlafaxine Hcl Er 150 Mg Cap.Er.24h) 150 mg PO DAILY [facility] Last Admin: 06/14/23 09:19 Dose: 150 mg <Zuelma Waterman PA-C - Last Filed: 06/14/23 13:54> Home medications: Home Medications Medication Instructions Recorded Confirmed Last Taken Type acetaminophen 650 mg 1,300 mg PO BID 06/10/23 06/10/23 06/10/23 History tablet,extended release (Tylenol Arthritis Pain) aspirin 81 mg tablet,delayed 81 mg PO DAILY 06/10/23 06/10/23 06/10/23 History release atorvastatin 40 mg tablet 40 mg PO DAILY 06/10/23 06/10/23 06/10/23 History dulaglutide 4.5 mg/0.5 mL 4.5 mg subcut SA 06/10/23 06/10/23 06/08/23 History subcutaneous pen injector (Trulicity) empagliflozin 25 mg tablet 25 mg PO DAILY 06/10/23 06/10/23 06/10/23 History (Jardiance) insulin glargine 100 unit/mL (3 15 unit subcut BEDTIME 06/10/23 06/10/23 06/09/23 History mL) subcutaneous pen (Lantus Solostar U-100 Insulin) losartan 25 mg tablet 25 mg PO DAILY 06/10/23 06/10/23 06/10/23 History metformin 500 mg tablet,extended 500 mg PO DAILY 06/10/23 06/10/23 06/10/23 History release 24 hr methadone 10 mg/mL oral 100 mg PO DAILY 06/10/23 06/11/23 06/08/23 History concentrate (Methadose) omeprazole 40 mg capsule,delayed 40 mg PO BID 06/10/23 06/10/23 06/10/23 History release pregabalin 300 mg capsule 300 mg PO BID 06/10/23 06/10/23 06/10/23 History venlafaxine 150 mg 150 mg PO DAILY 06/10/23 06/10/23 06/10/23 History capsule,extended release 24 hr venlafaxine 75 mg capsule,extended 75 mg PO DAILY 06/10/23 06/10/23 06/10/23 History release 24 hr <RAMAN Jaeger Last Filed: 06/14/23 13:54> Physical Exam Vital Signs: Vital Signs: Last Vital Signs Temp 97.3 F 06/14/23 07:31 Pulse 72 06/14/23 07:31 Resp 20 06/14/23 07:31 BP 142/86 H 06/14/23 07:31 Pulse Ox 96 06/14/23 07:31 O2 Del Method Room Air 06/14/23 07:31 O2 Flow Rate 2 06/14/23 03:40 BMI result Body Mass Index 39.9 <RAMAN Jaeger Last Filed: 06/14/23 13:54> Const: Orientation/consciousness: patient oriented x3 <RAMAN Jaeger Last Filed: 06/14/23 13:54> Resp: Effort & Inspection: normal respiratory effort <RAMAN Jaeger Last Filed: 06/14/23 13:54> Skin: Other: no rashes <RAMAN Jaeger Last Filed: 06/14/23 13:54> Neuro: General: patient oriented x3 <RAMAN Jaeger Last Filed: 06/14/23 13:54> Extrem: Other: right foot with 1 cm plantar ulcer at base of first toe that extends between the first and second toes - significant callus surrounding the plantar ulcer <RAMAN Jaeger Last Filed: 06/14/23 13:54> Results Labs Result diagrams: 06/11/23 04:54 06/14/23 05:48 <RAMAN Jaeger Last Filed: 06/14/23 13:54> Labs: Abnormal lab results 06/13/23 06/14/23 06/14/23 Range/Units 15:28 07:36 11:15 POC Glucose 118 H 142 H 148 H (60-115) mg/dL All other labs normal. <Zulema Waterman PA-C - Last Filed: 06/14/23 13:54> Assessment and Plan (1) Non-healing ulcer: Status: Acute <Zulema Waterman PA-C - Last Filed: 06/14/23 13:54> (2) Cellulitis of foot, right: Status: Acute <Zulema Waterman PA-C - Last Filed: 06/14/23 13:54> seen and examined independently agree with LICO Waterman <Jake Sanchez MD - Last Filed: 06/14/23 15:29> 62 year old female admitted with right foot cellulitis and diabetic foot ulcer. She has been on IV vanco and zosyn and cellulitis is near resolved. Wound ulcer is clean but had significant thick callus burden of about 1 cm surrounding which was sharply debrided with a #15 blade at bedside without complication. The wound was dressed with silver alginate, 4x4 and kolby wrap. She can follow up with wound care center and manager truck upon discharge. Patient comfortable with plan. <Zulema Waterman PA-C - Last Filed: 06/14/23 13:54> Procedures Date of Service Date of Service: 06/14/23 <Zulema Waterman PA-C - Last Filed: 06/14/23 13:54> 06/14/23 <Jake Sanchez MD - Last Filed: 06/14/23 15:29>
[2023-06-14 13:15] LABS: Creatinine Clr Calc Pharmacy 63.8; Estimated Glomerular Filt Rate 54
[2023-06-14 15:29] VITALS: BP 163/88; PULSE 85; RESP 18; TEMP 36.3; O2SAT 94
--- NOTE | 2023-06-14 15:35 | W.PM.IDCN ---
History of Present Illness Data of Consult Service Date: 06/14/23 Requesting physician: Carson Garcia Primary Care Provider: Ethan Carreno MD HPI Reason for consult: Group B strep bacteremia, right plantar foot ulcer She presents with worsening odor right plantar foot for a week. She has been seeing Wound Clinic and getting debridements. She has WBC of 14,000 and tachycardia of 91 on admission. She has Group B strep bacteremia XRay unremarkable for OM. She had callus debridement by General Surgery today. Review of Systems Review of Systems: Yes all other systems are reviewed and are negative Integumentary/Breasts: Comments: foot ulcer right drainage PMFSH Past Medical History Medical History Mood disorder Insulin dependent type 2 diabetes mellitus Essential hypertension Mixed hyperlipidemia Family History Family history: reviewed and not pertinent Social History Social History Household Members: Family Household Members Other:: 3 Housing: House Do you presently have visiting nurse or other home services: Yes Patient Tobacco Use Status: Current everyday Tobacco user Tobacco use type: Cigarette Cigarettes Per Day: 10 e-Cigarette/Vaping Use: Currently Using Advance Directives Date on File: 06/13/23 service: No Meds Allergies Allergy/AdvReac Type Severity Reaction Status Date / Time No Known Allergies Allergy Verified 06/10/23 18:49 Active Medications: Current Medications Acetaminophen (Acetaminophen 325 Mg Tablet) 650 mg PO Q6H PRN PRN Reason: Pain, Mild (Pain Scale 1-3) Last Admin: 06/13/23 21:21 Dose: 650 mg Aspirin (Aspirin Enteric Coated 81 Mg Tablet.Dr) 81 mg PO DAILY [facility] Last Admin: 06/14/23 09:20 Dose: 81 mg Atorvastatin Calcium (Atorvastatin Calcium 40 Mg Tablet) 40 mg PO DAILY [facility] Last Admin: 06/14/23 09:20 Dose: 40 mg Dextrose (Dextrose 50 % 25 Gm/50 Ml Syringe) 25 gm IVPUSH Q15M PRN; Protocol PRN Reason: per Hypoglycemia Standing Ord. Empagliflozin (Empagliflozin 25 Mg Tablet) 25 mg PO DAILY [facility] Last Admin: 06/14/23 09:21 Dose: 25 mg Enoxaparin Sodium (Enoxaparin Sodium 40 Mg/0.4 Ml Syringe) 40 mg SUBCUT Q24H [facility] Last Admin: 06/14/23 09:21 Dose: 40 mg Glucose (Glucose Gel 15 Gm Gel..Gram.) 15 gm PO Q15M PRN; Protocol PRN Reason: per Hypoglycemia Standing Ord. Ceftriaxone Sodium 2 gm/ (Sodium Chloride) 50 mls @ 100 mls/hr IV Q24H [facility] Insulin Glargine (Insulin Glargine,Hum.Rec.Anlog 100 Unit/Ml 10 Ml Vial) 12 unit SUBCUT BEDTIME [facility] Last Admin: 06/13/23 21:23 Dose: Not Given Insulin Glargine (Insulin Glargine,Hum.Rec.Anlog 100 Unit/Ml 10 Ml Vial) 15 unit SUBCUT BEDTIME [facility] Last Admin: 06/13/23 21:06 Dose: 15 unit Insulin Human Lispro (Insulin Lispro 100 Unit/Ml 3 Ml Vial) 0 unit SUBCUT QIDACHS [facility]; Protocol Last Admin: 06/14/23 12:20 Dose: Not Given Losartan Potassium (Losartan Potassium 25 Mg Tablet) 25 mg PO DAILY [facility]; Protocol Last Admin: 06/14/23 09:21 Dose: 25 mg Melatonin (Melatonin 3 Mg Tablet) 6 mg PO BEDTIME PRN PRN Reason: Insomnia Last Admin: 06/13/23 21:05 Dose: 6 mg Metformin HCl (Metformin Hcl Er 500 Mg Tab.Er.24h) 500 mg PO DAILY [facility] Last Admin: 06/14/23 09:20 Dose: 500 mg Methadone HCl (Methadone Hcl 20 Mg/2 Ml Oral.Conc) 100 mg PO DAILY [facility] Last Admin: 06/14/23 09:23 Dose: 100 mg Non-Formulary Medication (Dulaglutide [Trulicity]) 4.5 mg SUBCUT SA [facility] Omeprazole (Omeprazole 40 Mg Capsule.Dr) 40 mg PO BID [facility] Last Admin: 06/14/23 09:21 Dose: 40 mg Ondansetron HCl (Ondansetron Hcl 4 Mg/2 Ml Vial) 4 mg IVPUSH Q8H PRN PRN Reason: Nausea and Vomiting Pharmacy Consult (Consult Rx Vancomycin Dosing) 1 each MISCELLANE DAILY PRN PRN Reason: Consult order Pregabalin (Pregabalin 150 Mg Capsule) 300 mg PO BID [facility] Last Admin: 06/14/23 09:20 Dose: 300 mg Sodium Chloride (0.9 % Sodium Chloride Flush 3 Ml Syringe) 3 ml IVFLUSH QSHIFT [facility] Last Admin: 06/14/23 09:22 Dose: 3 ml Venlafaxine HCl (Venlafaxine Hcl Er 75 Mg Cap.Er.24h) 75 mg PO DAILY [facility] Last Admin: 06/14/23 09:19 Dose: 75 mg Venlafaxine HCl (Venlafaxine Hcl Er 150 Mg Cap.Er.24h) 150 mg PO DAILY [facility] Last Admin: 06/14/23 09:19 Dose: 150 mg Home Medications Medication Instructions Recorded Confirmed Last Taken Type acetaminophen 650 mg 1,300 mg PO BID 06/10/23 06/10/23 06/10/23 History tablet,extended release (Tylenol Arthritis Pain) aspirin 81 mg tablet,delayed 81 mg PO DAILY 06/10/23 06/10/23 06/10/23 History release atorvastatin 40 mg tablet 40 mg PO DAILY 06/10/23 06/10/23 06/10/23 History dulaglutide 4.5 mg/0.5 mL 4.5 mg subcut SA 06/10/23 06/10/23 06/08/23 History subcutaneous pen injector (Trulicity) empagliflozin 25 mg tablet 25 mg PO DAILY 06/10/23 06/10/23 06/10/23 History (Jardiance) insulin glargine 100 unit/mL (3 15 unit subcut BEDTIME 06/10/23 06/10/23 06/09/23 History mL) subcutaneous pen (Lantus Solostar U-100 Insulin) losartan 25 mg tablet 25 mg PO DAILY 06/10/23 06/10/23 06/10/23 History metformin 500 mg tablet,extended 500 mg PO DAILY 06/10/23 06/10/23 06/10/23 History release 24 hr methadone 10 mg/mL oral 100 mg PO DAILY 06/10/23 06/11/23 06/08/23 History concentrate (Methadose) omeprazole 40 mg capsule,delayed 40 mg PO BID 06/10/23 06/10/23 06/10/23 History release pregabalin 300 mg capsule 300 mg PO BID 06/10/23 06/10/23 06/10/23 History venlafaxine 150 mg 150 mg PO DAILY 06/10/23 06/10/23 06/10/23 History capsule,extended release 24 hr venlafaxine 75 mg capsule,extended 75 mg PO DAILY 06/10/23 06/10/23 06/10/23 History release 24 hr Physical Exam Vital Signs: Vital Signs: Last Vital Signs Temp 97.3 F 06/14/23 15:29 Pulse 85 06/14/23 15:29 Resp 18 06/14/23 15:29 BP 163/88 H 06/14/23 15:29 Pulse Ox 94 06/14/23 15:29 O2 Del Method Room Air 06/14/23 15:29 O2 Flow Rate 2 06/14/23 03:40 BMI result Body Mass Index 39.9 Extrem: Other: ulcer plantar surface foot,right ,bleeding post callus debridement Results Labs 06/11/23 04:54 06/14/23 05:48 Labs: BMP 06/14/23 05:48 Creatinine 1.03 Microbiology Microbiology Results: Microbiology 06/10/23 19:16 Blood - Venous Blood Culture - Preliminary No growth after 48 hours. 06/10/23 19:18 Blood - Venous Blood Culture - Final Strep agalactiae (Grp B) Assessment and Plan (1) Non-healing ulcer: Status: Acute (2) Cellulitis of foot, right: Status: Acute She has Group B strep bacteremia. She has possible OM with this. Plan Would narrow spectrum to Ceftriaxone 2 g daily. Check MRI foot if able evaluate OM. If no OM po cephalosporin for 14 day total. If OM Ertapenem for six weeks with weekly CBC and creatinine.
[2023-06-14] MEDS: cefTRIAXone sodium 2 GM in 0.9 % Sodium Chloride 50 ML IV (16:06)
[2023-06-14 16:14] LABS: Glucose, Whole Blood 126 mg/dL (60-115)
--- NOTE | 2023-06-14 16:18 | PC.NURSE ---
Addendum entered by Rhonda Quinn RN 06/14/23 16:19: Dr. Garcia made aware Original Note: Patient reports loose stools all day x9,denies abdominal pain or discomfort
[2023-06-14 19:35] VITALS: BP 142/93; PULSE 84; RESP 18; TEMP 36.3; O2SAT 97
[2023-06-14 19:58] LABS: CDiff Gene PCR NEGATIVE (Negative)
[2023-06-14 20:21] LABS: Glucose, Whole Blood 131 mg/dL (60-115)
[2023-06-14] MEDS: Insulin Glargine,Hum.rec.anlog 100 UNIT/ML 10 ML VIAL 12 UNIT SUBCUT (20:45)
[2023-06-14] MEDS: Melatonin 3 MG TABLET 6 MG PO (20:51)
--- NOTE | 2023-06-15 00:59 | PC.NURSE ---
Acquired care at 2330. Pt is in bed sleeping. No complaints. No signs of distress. hourly rounding done.
[2023-06-15 03:12] VITALS: BP 152/88; PULSE 78; RESP 18; TEMP 36.1; O2SAT 96
[2023-06-15 07:36] LABS: Glucose, Whole Blood 132 mg/dL (60-115)
[2023-06-15 07:58] VITALS: BP 170/94; PULSE 74; RESP 20; TEMP 36.7; O2SAT 96
[2023-06-15 09:05] VITALS: BP 172/88; PULSE 72
[2023-06-15] MEDS: Pregabalin 150 MG CAPSULE 300 MG PO ×2 (09:19→20:51)
[2023-06-15] MEDS: Venlafaxine HCl ER 75 MG CAP.ER.24H PO (09:19)
[2023-06-15] MEDS: Atorvastatin Calcium 40 MG TABLET PO (09:19)
[2023-06-15] MEDS: Venlafaxine HCl ER 150 MG CAP.ER.24H PO (09:19)
[2023-06-15] MEDS: Aspirin Enteric Coated 81 MG TABLET.DR PO (09:19)
[2023-06-15] MEDS: Losartan Potassium 25 MG TABLET PO (09:20)
[2023-06-15] MEDS: methADONE HCl 20 MG/2 ML ORAL.CONC 100 MG PO (09:20)
[2023-06-15] MEDS: Enoxaparin Sodium 40 MG/0.4 ML SYRINGE SUBCUT (09:20)
[2023-06-15] MEDS: Omeprazole 40 MG CAPSULE.DR PO ×2 (09:20→20:50)
--- NOTE | 2023-06-15 09:25 | P.PNIM_ITS ---
Subjective Subjective Date of Service: 06/15/23 Interval History: f/u on infected foot, cellulitis redness is getting better, Physical Exam 2 Vital Signs: Vital Signs: Last Vital Signs Temp 98.1 F 06/15/23 07:58 Pulse 72 06/15/23 09:05 Resp 20 06/15/23 07:58 BP 172/88 H 06/15/23 09:05 Pulse Ox 96 06/15/23 07:58 O2 Del Method Room Air 06/15/23 07:58 O2 Flow Rate 2 06/14/23 03:40 BMI result Body Mass Index 39.9 Const: Other: General: AO X 3, no acute distress Resp: CTA bilateral CVS: S1,S2,RRR GI: +BS, NT, no distention Skin: No rash, Right foot with erythema, swelling, open wound to the bottom of her R foot Neuro: motor grossly intact Psych: appropriate affect Musculoskeletal: Objective Data Active Medications Acetaminophen (Acetaminophen 325 Mg Tablet) 650 mg PO Q6H PRN PRN Reason: Pain, Mild (Pain Scale 1-3) Last Admin: 06/13/23 21:21 Dose: 650 mg Documented By: JOE Aspirin (Aspirin Enteric Coated 81 Mg Tablet.) 81 mg PO DAILY [facility] Last Admin: 06/15/23 09:19 Dose: 81 mg Documented By: NEREIDA Atorvastatin Calcium (Atorvastatin Calcium 40 Mg Tablet) 40 mg PO DAILY [facility] Last Admin: 06/15/23 09:19 Dose: 40 mg Documented By: NEREIDA Dextrose (Dextrose 50 % 25 Gm/50 Ml Syringe) 25 gm IVPUSH Q15M PRN; Protocol PRN Reason: per Hypoglycemia Standing Ord. Empagliflozin (Empagliflozin 25 Mg Tablet) 25 mg PO DAILY [facility] Last Admin: 06/14/23 09:21 Dose: 25 mg Documented By: MARIZOL Enoxaparin Sodium (Enoxaparin Sodium 40 Mg/0.4 Ml Syringe) 40 mg SUBCUT Q24H [facility] Last Admin: 06/15/23 09:20 Dose: 40 mg Documented By: NEREIDA Glucose (Glucose Gel 15 Gm Gel..Gram.) 15 gm PO Q15M PRN; Protocol PRN Reason: per Hypoglycemia Standing Ord. Ceftriaxone Sodium 2 gm/ (Sodium Chloride) 50 mls @ 100 mls/hr IV Q24H [facility] Last Infusion: 06/14/23 16:55 Dose: Infused Documented By: CURTIS Insulin Glargine (Insulin Glargine,Hum.Rec.Anlog 100 Unit/Ml 10 Ml Vial) 12 unit SUBCUT BEDTIME [facility] Last Admin: 06/14/23 20:45 Dose: 12 unit Documented By: CURTIS Insulin Human Lispro (Insulin Lispro 100 Unit/Ml 3 Ml Vial) 0 unit SUBCUT QIDACHS [facility]; Protocol Last Admin: 06/15/23 07:39 Dose: Not Given Documented By: CLINTON Non-Admin Reason: No Insulin Coverage Losartan Potassium (Losartan Potassium 25 Mg Tablet) 25 mg PO DAILY [facility]; Protocol Last Admin: 06/15/23 09:20 Dose: 25 mg Documented By: NEREIDA Melatonin (Melatonin 3 Mg Tablet) 6 mg PO BEDTIME PRN PRN Reason: Insomnia Last Admin: 06/14/23 20:51 Dose: 6 mg Documented By: CURTIS Metformin HCl (Metformin Hcl Er 500 Mg Tab.Er.24h) 500 mg PO DAILY [facility] Last Admin: 06/14/23 09:20 Dose: 500 mg Documented By: MARIZOL Methadone HCl (Methadone Hcl 20 Mg/2 Ml Oral.Conc) 100 mg PO DAILY [facility] Last Admin: 06/15/23 09:20 Dose: 100 mg Documented By: NEREIDA Non-Formulary Medication (Dulaglutide [Trulicity]) 4.5 mg SUBCUT [facility] Omeprazole (Omeprazole 40 Mg Capsule.) 40 mg PO BID [facility] Last Admin: 06/15/23 09:20 Dose: 40 mg Documented By: NEREIDA Ondansetron HCl (Ondansetron Hcl 4 Mg/2 Ml Vial) 4 mg IVPUSH Q8H PRN PRN Reason: Nausea and Vomiting Pregabalin (Pregabalin 150 Mg Capsule) 300 mg PO BID [facility] Last Admin: 06/15/23 09:19 Dose: 300 mg Documented By: NEREIDA Sodium Chloride (0.9 % Sodium Chloride Flush 3 Ml Syringe) 3 ml IVFLUSH QSHIFT [facility] Last Admin: 06/15/23 08:02 Dose: Not Given Documented By: CLINTON Non-Admin Reason: Previously Administered Venlafaxine HCl (Venlafaxine Hcl Er 75 Mg Cap.Er.24h) 75 mg PO DAILY [facility] Last Admin: 06/15/23 09:19 Dose: 75 mg Documented By: NEREIDA Venlafaxine HCl (Venlafaxine Hcl Er 150 Mg Cap.Er.24h) 150 mg PO DAILY [facility] Last Admin: 06/15/23 09:19 Dose: 150 mg Documented By: NEREIDA Labs 06/11/23 04:54 06/14/23 05:48 Labs: Laboratory Results - last 24 hr 06/14/23 06/14/23 06/14/23 05:48 11:15 16:03 Estim Creat Clear Calc 63.8 Estimated GFR 54 POC Glucose 148 H 126 H C. difficile Tox B Gene 06/14/23 06/14/23 06/15/23 18:58 20:14 07:31 Estim Creat Clear Calc Estimated GFR POC Glucose 131 H 132 H C. difficile Tox B Gene NEGATIVE Assessment and Plan (1) Cellulitis of foot, right: Status: Acute Plan 62-year-old female with pertinent history of insulin-dependent diabetes mellitus, mixed hyperlipidemia, essential hypertension, gastroesophageal reflux disease, mood disorder who presents to the emergency department for evaluation of redness and swelling of right foot. Sepsis due to right foot cellulitis and open wound has been on IV Vanco + Zosyn, ID consult, blood culture from 06/10 GBS, Abx changed to Ceftriaxone on 06/14. Unable to get MRI to rule osteo due to a neuro stimulator, will get CT instead Insulin-dependent diabetes mellitus: Insulin, follow blood sugars Essential HTN: Hold antihypertensives the setting of sepsis Mixed hyperlipidemia: On statin Mood disorder: Continue home mood stabilizers Gastroesophageal reflux disease: On PPI Obesity: Counseled regarding diet and exercise FIGUEROA: Noncompliant with CPAP at home DVT prophylaxis: Lovenox need for inpatient: Sepsis bacteremia, on IV Abx and having further testing to rule osteo possible dc tomorrow Quality Stroke Does the patient have a stroke diagnosis?: No VTE Prior VTE?: No VTE Risk Level:: Medical - moderate - high VTE Device Contraindication: Treatment Not Indicated VTE Drug Contraindication: N/A - Med Ordered
[2023-06-15] MEDS: Empagliflozin 25 MG TABLET PO (11:09)
[2023-06-15] MEDS: iohexoL 350 MG/ML 100 ML INFUS..BTL 85 ML IV (11:15)
[2023-06-15 11:24] LABS: Glucose, Whole Blood 119 mg/dL (60-115)
[2023-06-15] MEDS: cefTRIAXone sodium 2 GM in 0.9 % Sodium Chloride 50 ML IV (16:13)
[2023-06-15] MEDS: 0.9 % Sodium Chloride Flush 3 ML SYRINGE IVFLUSH ×2 (16:21→20:52)
[2023-06-15 17:10] LABS: Glucose, Whole Blood 144 mg/dL (60-115)
[2023-06-15 20:00] VITALS: BP 137/77; PULSE 81; RESP 18; TEMP 36; O2SAT 95
[2023-06-15 20:28] LABS: Glucose, Whole Blood 184 mg/dL (60-115)
[2023-06-15] MEDS: Melatonin 3 MG TABLET 6 MG PO (20:51)
[2023-06-15] MEDS: Insulin Glargine,Hum.rec.anlog 100 UNIT/ML 10 ML VIAL 12 UNIT SUBCUT (20:53)
[2023-06-15] MEDS: Insulin Lispro 100 UNIT/ML 3 ML VIAL SUBCUT (20:53)
[2023-06-16 00:01] VITALS: BP 148/78; PULSE 87; RESP 19; TEMP 36.1; O2SAT 96
[2023-06-16 07:18] VITALS: BP 160/82; PULSE 76; RESP 18; TEMP 36.9; O2SAT 97
[2023-06-16 07:27] LABS: Glucose, Whole Blood 155 mg/dL (60-115)
[2023-06-16] MEDS: Enoxaparin Sodium 40 MG/0.4 ML SYRINGE SUBCUT (08:11)
[2023-06-16] MEDS: Insulin Lispro 100 UNIT/ML 3 ML VIAL SUBCUT (08:11)
[2023-06-16] MEDS: methADONE HCl 20 MG/2 ML ORAL.CONC 100 MG PO (08:12)
[2023-06-16] MEDS: Pregabalin 150 MG CAPSULE 300 MG PO ×2 (08:15→21:08)
[2023-06-16] MEDS: Atorvastatin Calcium 40 MG TABLET PO (08:15)
[2023-06-16] MEDS: Venlafaxine HCl ER 150 MG CAP.ER.24H PO (08:15)
[2023-06-16] MEDS: Omeprazole 40 MG CAPSULE.DR PO ×2 (08:15→21:08)
[2023-06-16] MEDS: Empagliflozin 25 MG TABLET PO (08:15)
[2023-06-16] MEDS: Aspirin Enteric Coated 81 MG TABLET.DR PO (08:16)
[2023-06-16] MEDS: Venlafaxine HCl ER 75 MG CAP.ER.24H PO (08:16)
[2023-06-16] MEDS: 0.9 % Sodium Chloride Flush 3 ML SYRINGE IVFLUSH ×3 (08:16→21:09)
[2023-06-16] MEDS: Losartan Potassium 25 MG TABLET PO (08:17)
--- NOTE | 2023-06-16 09:49 | P.PNIM_ITS ---
Subjective Subjective Date of Service: 06/16/23 Interval History: still with some diarrhea, CT show abscess but no osteo Physical Exam 2 Vital Signs: Vital Signs: Last Vital Signs Temp 98.5 F 06/16/23 07:18 Pulse 76 06/16/23 07:18 Resp 18 06/16/23 07:18 BP 160/82 H 06/16/23 07:18 Pulse Ox 97 06/16/23 07:18 O2 Del Method Room Air 06/16/23 07:18 O2 Flow Rate 2 06/14/23 03:40 BMI result Body Mass Index 39.9 Const: Other: General: AO X 3, no acute distress Resp: CTA bilateral CVS: S1,S2,RRR GI: +BS, NT, no distention Skin: No rash, Right foot with erythema, swelling, open wound to the bottom of her R foot Neuro: motor grossly intact Psych: appropriate affect Musculoskeletal: Objective Data Active Medications Acetaminophen (Acetaminophen 325 Mg Tablet) 650 mg PO Q6H PRN PRN Reason: Pain, Mild (Pain Scale 1-3) Last Admin: 06/13/23 21:21 Dose: 650 mg Documented By: JOE Aspirin (Aspirin Enteric Coated 81 Mg Tablet.) 81 mg PO DAILY [facility] Last Admin: 06/16/23 08:16 Dose: 81 mg Documented By: CLINTON Atorvastatin Calcium (Atorvastatin Calcium 40 Mg Tablet) 40 mg PO DAILY [facility] Last Admin: 06/16/23 08:15 Dose: 40 mg Documented By: CLINTON Dextrose (Dextrose 50 % 25 Gm/50 Ml Syringe) 25 gm IVPUSH Q15M PRN; Protocol PRN Reason: per Hypoglycemia Standing Ord. Empagliflozin (Empagliflozin 25 Mg Tablet) 25 mg PO DAILY [facility] Last Admin: 06/16/23 08:15 Dose: 25 mg Documented By: CLINTON Enoxaparin Sodium (Enoxaparin Sodium 40 Mg/0.4 Ml Syringe) 40 mg SUBCUT Q24H [facility] Last Admin: 06/16/23 08:11 Dose: 40 mg Documented By: CLINTON Glucose (Glucose Gel 15 Gm Gel..Gram.) 15 gm PO Q15M PRN; Protocol PRN Reason: per Hypoglycemia Standing Ord. Ceftriaxone Sodium 2 gm/ (Sodium Chloride) 50 mls @ 100 mls/hr IV Q24H [facility] Last Infusion: 06/15/23 17:00 Dose: Infused Documented By: CLINTON Insulin Glargine (Insulin Glargine,Hum.Rec.Anlog 100 Unit/Ml 10 Ml Vial) 12 unit SUBCUT BEDTIME [facility] Last Admin: 06/15/23 20:53 Dose: 12 unit Documented By: ELVA Insulin Human Lispro (Insulin Lispro 100 Unit/Ml 3 Ml Vial) 0 unit SUBCUT QIDACHS [facility]; Protocol Last Admin: 06/16/23 08:11 Dose: 2 unit Documented By: CLINTON Loperamide HCl (Loperamide Hcl 2 Mg Capsule) 2 mg PO Q6H PRN PRN Reason: Diarrhea Losartan Potassium (Losartan Potassium 25 Mg Tablet) 25 mg PO DAILY [facility]; Protocol Last Admin: 06/16/23 08:17 Dose: 25 mg Documented By: CLINTON Melatonin (Melatonin 3 Mg Tablet) 6 mg PO BEDTIME PRN PRN Reason: Insomnia Last Admin: 06/15/23 20:51 Dose: 6 mg Documented By: ELVA Metformin HCl (Metformin Hcl Er 500 Mg Tab.Er.24h) 500 mg PO DAILY [facility] Last Admin: 06/16/23 08:21 Dose: Not Given Documented By: CLINTON Non-Admin Reason: CT contrast administered 06/16. Methadone HCl (Methadone Hcl 20 Mg/2 Ml Oral.Conc) 100 mg PO DAILY [facility] Last Admin: 06/16/23 08:12 Dose: 100 mg Documented By: CLINTON Non-Formulary Medication (Dulaglutide [Trulicity]) 4.5 mg SUBCUT [facility] Omeprazole (Omeprazole 40 Mg Capsule.Dr) 40 mg PO BID [facility] Last Admin: 06/16/23 08:15 Dose: 40 mg Documented By: CLINTON Ondansetron HCl (Ondansetron Hcl 4 Mg/2 Ml Vial) 4 mg IVPUSH Q8H PRN PRN Reason: Nausea and Vomiting Pregabalin (Pregabalin 150 Mg Capsule) 300 mg PO BID [facility] Last Admin: 06/16/23 08:15 Dose: 300 mg Documented By: CLINTON Sodium Chloride (0.9 % Sodium Chloride Flush 3 Ml Syringe) 3 ml IVFLUSH QSHIFT [facility] Last Admin: 06/16/23 08:16 Dose: 3 ml Documented By: CLINTON Venlafaxine HCl (Venlafaxine Hcl Er 75 Mg Cap.Er.24h) 75 mg PO DAILY [facility] Last Admin: 06/16/23 08:16 Dose: 75 mg Documented By: CLINTON Venlafaxine HCl (Venlafaxine Hcl Er 150 Mg Cap.Er.24h) 150 mg PO DAILY [facility] Last Admin: 06/16/23 08:15 Dose: 150 mg Documented By: CLINTON Labs 06/11/23 04:54 06/14/23 05:48 Labs: Laboratory Results - last 24 hr 06/15/23 06/15/23 06/15/23 11:19 16:11 20:24 POC Glucose 119 H 144 H 184 H 06/16/23 07:23 POC Glucose 155 H Microbiology Microbiology Results: Microbiology 06/10/23 19:16 Blood Culture - Final Blood - Venous No growth after 5 days. 06/14/23 15:51 Blood Culture - Preliminary Blood - Venous No growth after 24 hours. 06/14/23 15:51 Blood Culture - Preliminary Blood - Venous No growth after 24 hours. Assessment and Plan (1) Cellulitis of foot, right: Status: Acute Plan 62-year-old female with pertinent history of insulin-dependent diabetes mellitus, mixed hyperlipidemia, essential hypertension, gastroesophageal reflux disease, mood disorder who presents to the emergency department for evaluation of redness and swelling of right foot. Sepsis due to right foot cellulitis and open wound. Initailly was on IV Vanco + Zosyn. blood culture from 06/10 GBS, Abx changed to Ceftriaxone on 06/14. Unable to get MRI to rule osteo due to a neuro stimulator. CT show oseto but 2 cm abscess--see details. Check with surgery if this need to be drain Insulin-dependent diabetes mellitus: Insulin, follow blood sugars Essential HTN: continue Losartan, add Norvasc 5 Mixed hyperlipidemia: On statin Mood disorder: Continue home mood stabilizers Gastroesophageal reflux disease: On PPI Obesity: Counseled regarding diet and exercise FIGUEROA: Noncompliant with CPAP at home DVT prophylaxis: Lovenox need for inpatient: Sepsis bacteremia, on IV Abx and having further testing to rule osteo possible dc tomorrow Quality Stroke Does the patient have a stroke diagnosis?: No VTE Prior VTE?: No VTE Risk Level:: Medical - moderate - high VTE Device Contraindication: Treatment Not Indicated VTE Drug Contraindication: N/A - Med Ordered
--- NOTE | 2023-06-16 10:40 | P.PNGS_ITS ---
Subjective Subjective Date of Service: 06/16/23 Patient reports: still having pain Interval history: I was asked to assess the patient since she endorses ongoing pain at the base of right great toe and bottom of foot. While her cellulitis has improved, an interval CT demonstrating a 2 cm abscess of the right foot in the 1st interosseous space was noted. 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 I explained that I do not perform Podiatry and that I could attempt I and D of this abscess but there is risk of bleeding, infection and possible need for another procedure. Patient seemed understand and requested that I proceed Physical Exam 2 Vital Signs: Vital Signs: Last Vital Signs Temp 98.5 F 06/16/23 07:18 Pulse 76 06/16/23 07:18 Resp 18 06/16/23 07:18 BP 160/82 H 06/16/23 07:18 Pulse Ox 97 06/16/23 07:18 O2 Del Method Room Air 06/16/23 07:18 O2 Flow Rate 2 06/14/23 03:40 BMI result Body Mass Index 39.9 On exam, the patient is nontoxic. On physical exam, under loupe magnification, there is a large fissure with some purulence at the dorsal aspect on her right foot between her 1st and 2nd toe but I am unable to palpate an abscess. Following informed consent the dorsal foot and interdigital space was prepped with Betadine and allowed to dry. A skin wheal was raised with 1% lidocaine plain and an 11 blade used to incise a small rain. The area was probed with a mosquito and no purulence demonstrated. No cultures were obtained given the lack of purulence. Objective Data Active Medications Acetaminophen (Acetaminophen 325 Mg Tablet) 650 mg PO Q6H PRN PRN Reason: Pain, Mild (Pain Scale 1-3) Last Admin: 06/13/23 21:21 Dose: 650 mg Documented By: JOE Amlodipine Besylate (Amlodipine Besylate 5 Mg Tablet) 5 mg PO DAILY [facility]; Protocol Aspirin (Aspirin Enteric Coated 81 Mg Tablet.) 81 mg PO DAILY [facility] Last Admin: 06/16/23 08:16 Dose: 81 mg Documented By: CLINTON Atorvastatin Calcium (Atorvastatin Calcium 40 Mg Tablet) 40 mg PO DAILY [facility] Last Admin: 06/16/23 08:15 Dose: 40 mg Documented By: CLINTON Dextrose (Dextrose 50 % 25 Gm/50 Ml Syringe) 25 gm IVPUSH Q15M PRN; Protocol PRN Reason: per Hypoglycemia Standing Ord. Empagliflozin (Empagliflozin 25 Mg Tablet) 25 mg PO DAILY [facility] Last Admin: 06/16/23 08:15 Dose: 25 mg Documented By: CLINTON Enoxaparin Sodium (Enoxaparin Sodium 40 Mg/0.4 Ml Syringe) 40 mg SUBCUT Q24H [facility] Last Admin: 06/16/23 08:11 Dose: 40 mg Documented By: CLINTON Glucose (Glucose Gel 15 Gm Gel..Gram.) 15 gm PO Q15M PRN; Protocol PRN Reason: per Hypoglycemia Standing Ord. Ceftriaxone Sodium 2 gm/ (Sodium Chloride) 50 mls @ 100 mls/hr IV Q24H [facility] Last Infusion: 06/15/23 17:00 Dose: Infused Documented By: CLINTON Insulin Glargine (Insulin Glargine,Hum.Rec.Anlog 100 Unit/Ml 10 Ml Vial) 12 unit SUBCUT BEDTIME [facility] Last Admin: 06/15/23 20:53 Dose: 12 unit Documented By: ELVA Insulin Human Lispro (Insulin Lispro 100 Unit/Ml 3 Ml Vial) 0 unit SUBCUT QIDACHS [facility]; Protocol Last Admin: 06/16/23 08:11 Dose: 2 unit Documented By: CLINTON Loperamide HCl (Loperamide Hcl 2 Mg Capsule) 2 mg PO Q6H PRN PRN Reason: Diarrhea Losartan Potassium (Losartan Potassium 25 Mg Tablet) 25 mg PO DAILY [facility]; Protocol Last Admin: 06/16/23 08:17 Dose: 25 mg Documented By: CLINTON Melatonin (Melatonin 3 Mg Tablet) 6 mg PO BEDTIME PRN PRN Reason: Insomnia Last Admin: 06/15/23 20:51 Dose: 6 mg Documented By: ELVA Metformin HCl (Metformin Hcl Er 500 Mg Tab.Er.24h) 500 mg PO DAILY [facility] Last Admin: 06/16/23 08:21 Dose: Not Given Documented By: CLINTON Non-Admin Reason: CT contrast administered 06/16. Methadone HCl (Methadone Hcl 20 Mg/2 Ml Oral.Conc) 100 mg PO DAILY [facility] Last Admin: 06/16/23 08:12 Dose: 100 mg Documented By: CLINTON Non-Formulary Medication (Dulaglutide [Trulicity]) 4.5 mg SUBCUT SA [facility] Omeprazole (Omeprazole 40 Mg Capsule.Dr) 40 mg PO BID [facility] Last Admin: 06/16/23 08:15 Dose: 40 mg Documented By: CLINTON Ondansetron HCl (Ondansetron Hcl 4 Mg/2 Ml Vial) 4 mg IVPUSH Q8H PRN PRN Reason: Nausea and Vomiting Pregabalin (Pregabalin 150 Mg Capsule) 300 mg PO BID [facility] Last Admin: 06/16/23 08:15 Dose: 300 mg Documented By: CLINTON Sodium Chloride (0.9 % Sodium Chloride Flush 3 Ml Syringe) 3 ml IVFLUSH QSHIFT [facility] Last Admin: 06/16/23 08:16 Dose: 3 ml Documented By: CLINTON Venlafaxine HCl (Venlafaxine Hcl Er 75 Mg Cap.Er.24h) 75 mg PO DAILY [facility] Last Admin: 06/16/23 08:16 Dose: 75 mg Documented By: CLINTON Venlafaxine HCl (Venlafaxine Hcl Er 150 Mg Cap.Er.24h) 150 mg PO DAILY [facility] Last Admin: 06/16/23 08:15 Dose: 150 mg Documented By: CLINTON Labs 06/11/23 04:54 06/14/23 05:48 Labs: Laboratory Results - last 24 hr 06/15/23 06/15/23 06/15/23 11:19 16:11 20:24 POC Glucose 119 H 144 H 184 H 06/16/23 07:23 POC Glucose [address] right foot: Radiologist's impression: Impressions Foot CT 06/15/23 11:15 IMPRESSION: 1. A 2 cm abscess in the plantar soft tissues of the great toe proximal phalanx with extension into the first intermetatarsal space. No CT findings of osteomyelitis. 2. Mild multifocal osteoarthritis in the forefoot. 3. Diffuse fatty atrophy of the intrinsic foot musculature. Microbiology Microbiology Results: Microbiology 06/10/23 19:16 Blood Culture - Final Blood - Venous No growth after 5 days. 06/14/23 15:51 Blood Culture - Preliminary Blood - Venous No growth after 24 hours. 06/14/23 15:51 Blood Culture - Preliminary Blood - Venous No growth after 24 hours. Procedures Date of Service Date of Service: 06/16/23 Progress Note: A&P Assessment and plan (1) Cellulitis of foot, right: Status: Acute (2) Non-healing ulcer: Status: Acute (3) Mixed hyperlipidemia: Status: Acute (4) Essential hypertension: Status: Acute (5) Insulin dependent type 2 diabetes mellitus: Status: Acute (6) Mood disorder: Status: Acute Plan Negative I&D attempted. Continue IV antibiotics for now and will review the case with 1 of the surgeons who addresses diabetic foot infections. Time Spent With Patient Time: Total time managing care of this patient today ____ minutes. Quality Stroke Does the patient have a stroke diagnosis?: No VTE Prior VTE?: No VTE Risk Level:: Medical - moderate - high VTE Device Contraindication: Treatment Not Indicated VTE Drug Contraindication: N/A - Med Ordered
[2023-06-16] MEDS: Acetaminophen 325 MG TABLET 650 MG PO ×2 (10:52→21:09)
[2023-06-16] MEDS: Loperamide HCl 2 MG CAPSULE PO ×2 (10:53→21:08)
[2023-06-16] MEDS: amLODIPine Besylate 5 MG TABLET PO (10:53)
[2023-06-16 11:26] LABS: Glucose, Whole Blood 120 mg/dL (60-115)
[2023-06-16 15:38] VITALS: BP 119/87; PULSE 86; RESP 18; TEMP 36.1; O2SAT 97
--- NOTE | 2023-06-16 15:50 | P.CDIM_ITS ---
PROVIDER RESPONSE TEXT: To clarify, the appropriate diagnosis supported by the clinical indicators: Yes, right foot cellulitis is related to / associated with / due to Diabetes Mellitus QUERY TEXT: >>> Provider Instructions - Do not remove this line >>> PHYSICIAN'S DOCUMENTATION REQUEST Date of Query: 06/12/2023 08:46 AM EST Patient Name: Aruna Mahoney Admit Date: 06/11/2023 Dear Carson Garcia, A review of the medical record indicates additional documentation may be needed. Please review below and update the documentation accordingly. Documentation includes the conditions of right foot cellulitis and Diabetes Mellitus. Clinical Indicators: Per Hospitalist Progress Note 06/11/23: Sepsis due to right foot cellulitis: IV Vanco + Zosyn, ID consult Insulin-dependent diabetes mellitus: Insulin + POC Please clarify the relationship between these conditions: <<< Provider Instructions - Do not remove this line <<< Yes, right foot cellulitis is related to / associated with / due to Diabetes Mellitus No, right foot cellulitis is not related to / associated with / due to Diabetes Mellitus Other (explain) Clinically unable to determine (explain) >>> Contact Info - Do not remove this line>>> Thank you, Blessing Robin RN Use of terms such as suspected, likely, concern for, or probable (associated with a specific diagnosi s that is being evaluated, monitored, or treated as if it exists) are acceptable and can be coded in the inpatient se tting, when documented at the time of discharge. Please use your independent medical judgment in providing your response. THIS QUERY IS PART OF THE PERMANENT MEDICAL RECORD <<< Contact Info - Do not remove this line <<< >>> Disclaimer - Do no remove this line>>> Extension: [phone] <<< Disclaimer - Do not remove this line<<<
[2023-06-16] MEDS: cefTRIAXone sodium 2 GM in 0.9 % Sodium Chloride 50 ML IV (16:20)
[2023-06-16 16:32] LABS: Glucose, Whole Blood 94 mg/dL (60-115)
[2023-06-16 19:34] VITALS: BP 150/73; PULSE 84; RESP 18; TEMP 36.2; O2SAT 98
[2023-06-16] MEDS: Melatonin 3 MG TABLET 6 MG PO (21:08)
[2023-06-16] MEDS: Insulin Glargine,Hum.rec.anlog 100 UNIT/ML 10 ML VIAL 12 UNIT SUBCUT (21:08)
[2023-06-17 00:47] LABS: Glucose, Whole Blood 150 mg/dL (60-115)
[2023-06-17 04:00] VITALS: BP 185/91; PULSE 76; RESP 18; TEMP 36.2; O2SAT 96
[2023-06-17 07:12] VITALS: BP 177/87; PULSE 86; RESP 18; TEMP 36.3; O2SAT 97
[2023-06-17 07:36] LABS: Glucose, Whole Blood 118 mg/dL (60-115)
[2023-06-17] MEDS: 0.9 % Sodium Chloride Flush 3 ML SYRINGE IVFLUSH (08:10)
[2023-06-17] MEDS: Pregabalin 150 MG CAPSULE 300 MG PO (08:10)
[2023-06-17] MEDS: amLODIPine Besylate 5 MG TABLET PO ×2 (08:11→11:09)
[2023-06-17] MEDS: Aspirin Enteric Coated 81 MG TABLET.DR PO (08:11)
[2023-06-17] MEDS: Empagliflozin 25 MG TABLET PO (08:11)
[2023-06-17] MEDS: Omeprazole 40 MG CAPSULE.DR PO (08:11)
[2023-06-17] MEDS: metFORMIN HCl ER 500 MG TAB.ER.24H PO (08:11)
[2023-06-17] MEDS: Venlafaxine HCl ER 75 MG CAP.ER.24H PO (08:11)
[2023-06-17] MEDS: Losartan Potassium 25 MG TABLET PO ×2 (08:11→11:09)
[2023-06-17] MEDS: Venlafaxine HCl ER 150 MG CAP.ER.24H PO (08:11)
[2023-06-17] MEDS: methADONE HCl 20 MG/2 ML ORAL.CONC 100 MG PO (08:11)
[2023-06-17] MEDS: Atorvastatin Calcium 40 MG TABLET PO (08:11)
[2023-06-17] MEDS: Enoxaparin Sodium 40 MG/0.4 ML SYRINGE SUBCUT (08:12)
--- NOTE | 2023-06-17 10:11 | PM.DS ---
DS: Providers Provider Date of Service: 06/17/23 Date of admission: 06/10/23 21:12 Primary care physician: Ethan Carreno MD Consults: 06/12/23 15:41 Consult to Infectious Diseases Routine Consulting Provider: [facility] [place] Infectious Disease Reason for consultation: cellulitis of the foot Has provider been notified: No 06/13/23 13:26 Consult to Wound Care Routine Reason for consultation: wound right great toe 06/14/23 07:36 Consult to General Surgery Routine Consulting Provider: [facility] [place] General Surgeons Reason for consultation: foot ulcer ? need debridment Has provider been notified: No DS: Diagnosis Discharge Diagnosis (1) Cellulitis of foot, right: Status: Acute (2) Non-healing ulcer: Status: Acute (3) Mixed hyperlipidemia: Status: Inactive (4) Essential hypertension: Status: Inactive (5) Insulin dependent type 2 diabetes mellitus: Status: Inactive (6) Mood disorder: Status: Inactive DS: Summary Hospital Course Hospital Course: Admission HPI Chief Complaint: Foot infection This is a 62-year-old female with pertinent history of insulin-dependent diabetes mellitus, mixed hyperlipidemia, essential hypertension, gastroesophageal reflux disease, mood disorder who presents to the emergency department for evaluation of redness and swelling of right foot. Patient states it started 1 day prior to presentation. Also has pain while walking. The redness and swelling has progressed in the last 24 hours. Denies fever but does have associated chills. No purulent drainage from the right foot. No chest discomfort, palpitations, shortness of breath, abdominal pain, changes in urinary or bowel habits. In the emergency department, patient was found to be septic. Hospital course: Sepsis due to right foot cellulitis and open wound. Initailly was on IV Vanco + Zosyn. blood culture from 06/10 GBS, Abx changed to Ceftriaxone on 06/14. Unable to get MRI to rule osteo due to a neuro stimulator. CT show oseto but 2 cm abscess--surgery attempted to drain but there was no much. Will change to PO Ceftin as recommended by Infectious disease for total of 14 days. Insulin-dependent diabetes mellitus: Insulin, follow blood sugars Essential HTN blood has been elevated so I have increased Norvasc 10 mg daily from 5, and Losartan 50 mg daily from 25 and should be followed up on by PCP for further adjustement Mixed hyperlipidemia: On statin Mood disorder: Continue home mood stabilizers Gastroesophageal reflux disease: On PPI Obesity: Counseled regarding diet and exercise FIGUEROA: Noncompliant with CPAP at home, encouraged to use it Time Attestation Discharge coordination time: Greater than 30 minutes Quality: Safe Use of Opioids Does Pt have an Active Cancer Diagnosis on the Problem List?: No Quality: Stroke Does the patient have a stroke diagnosis?: No Physical Exam Vital Signs: Vital Signs: Last Vital Signs Temp 97.3 F 06/17/23 07:12 Pulse 86 06/17/23 07:12 Resp 18 06/17/23 07:12 BP 177/87 H 06/17/23 07:12 Pulse Ox 97 06/17/23 07:12 O2 Del Method Room Air 06/17/23 07:12 O2 Flow Rate 2 06/14/23 03:40 BMI result Body Mass Index 39.9 Const: Other: General: AO X 3, no acute distress Resp: CTA bilateral CVS: S1,S2,RRR GI: +BS, NT, no distention Skin: foot wound Neuro: motor grossly intact Psych: appropriate affect DS: Data Data Completed and Pending Labs on day of discharge: Laboratory Results - last 24 hr 06/16/23 06/16/23 06/16/23 11:12 16:27 19:41 POC Glucose 120 H 94 150 H 06/17/23 07:23 POC Glucose 118 H Preliminary micro results at discharge 06/14/23 15:51 Blood Culture - Preliminary Blood - Venous No growth after 48 hours. 06/14/23 15:51 Blood Culture - Preliminary Blood - Venous No growth after 48 hours. Discharge Plan Discharge Anticipated Discharge Date/Time: 06/17/23 10:08 Patient Disposition: Home Health Service Discharge Diagnosis: Cellulitis of the foot, Referrals: [facility] [Outside] - 1 Day Ethan Carreno MD [Primary Care Provider] - 1 Week Discharge Medications: New losartan 50 mg Tablet 50 mg PO DAILY Qty: 30 0RF Protocol: Hold for SBP< HOLD for SBP < : 90 amlodipine 10 mg Tablet 10 mg PO DAILY Qty: 30 0RF Protocol: Hold for SBP< HOLD for SBP < : 90 cefuroxime axetil 500 mg tablet 500 mg PO BID 10 Days Qty: 20 0RF Continued venlafaxine 75 mg capsule,extended release 24hr 75 mg PO DAILY venlafaxine 150 mg capsule,extended release 24hr 150 mg PO DAILY omeprazole 40 mg capsule,delayed release(DR/EC) 40 mg PO BID aspirin 81 mg tablet,delayed release (DR/EC) 81 mg PO DAILY metformin 500 mg tablet extended release 24 hr 500 mg PO DAILY pregabalin 300 mg capsule 300 mg PO BID insulin glargine [Lantus Solostar U-100 Insulin] 100 unit/mL (3 mL) insulin pen 15 unit subcut BEDTIME Jardiance 25 mg tablet 25 mg PO DAILY Trulicity 4.5 mg/0.5 mL pen injector 4.5 mg subcut SA acetaminophen [Tylenol Arthritis Pain] 650 mg Tablet Extended Release 1,300 mg PO BID methadone [Methadose] 10 mg/mL Concentrate 100 mg PO DAILY Discontinued atorvastatin 40 mg tablet 40 mg PO DAILY losartan 25 mg tablet 25 mg PO DAILY Discharge Orders: Discharge Order (Routine); Ordered 06/17/23 Ordered By: Carson Garcia Diet: Diabetic diet Activity on Discharge: As tolerated Stand Alone Forms: Patient Portal Discharge page Activity Restrictions/Additional Instructions: Wound Care Recommendations: Maintain blood glucose levels per Providers orders. Right Great Toe - Off Load Pressure - Cleanse with saline, pat dry. Lightly pack wound bed with Durafiber AG (Silver Alginate), apply dry gauze, ABD pad and gauze wrap. Change every other day. Refer to [facility] for follow up care. Care Plan Goals: resolution of cellulitis and healing of the wound Health Concerns: Diabetic foot ulcer Uncontrolled high blood pressure Plan of Treatment: Take Ceftin (Cefuroxime) 500 mg twice daily as recommended, Follow up with wound care clinic ask your doctor to make referal to podiatris Your blood pressure medication have been increase (doses doubled), Norvasc dose is now 10 mg daily and Losartan is now 50 mg daily Assessment: as above Discharge Date/Time: 06/17/23 13:20
--- NOTE | 2023-06-17 10:15 | PM.PNGS ---
Subjective Subjective Date of Service: 06/17/23 <Zulema Waterman PA-C - Last Filed: 06/17/23 10:21> 06/17/23 <Jake Sanchez MD - Last Filed: 06/17/23 13:12> Interval history: C/o continued pain at lateral aspect of foot. <Zulema Waterman PA-C - Last Filed: 06/17/23 10:21> Physical Exam Vital Signs: Vital Signs: Last Vital Signs Temp 97.3 F 06/17/23 07:12 Pulse 86 06/17/23 07:12 Resp 18 06/17/23 07:12 BP 177/87 H 06/17/23 07:12 Pulse Ox 97 06/17/23 07:12 O2 Del Method Room Air 06/17/23 07:12 O2 Flow Rate 2 06/14/23 03:40 BMI result Body Mass Index 39.9 <Zulema Waterman PA-C - Last Filed: 06/17/23 10:21> Const: General: comfortable, no acute distress and alert <Zulema Waterman PA-C - Last Filed: 06/17/23 10:21> Resp: Effort & Inspection: normal respiratory effort <RAMAN Jaeger Last Filed: 06/17/23 10:21> Extrem: Other: right foot- plantar ulcer site remains clean appearing, no fluctuance appreciated, no erythema; there is a mild amount of edema on dorsal aspect overlying first metatarsal <Zulema Waterman PA-C - Last Filed: 06/17/23 10:21> Objective Data Active Medications Acetaminophen (Acetaminophen 325 Mg Tablet) 650 mg PO Q6H PRN PRN Reason: Pain, Mild (Pain Scale 1-3) Last Admin: 06/16/23 21:09 Dose: 650 mg Documented By: KESHA Amlodipine Besylate (Amlodipine Besylate 10 Mg Tablet) 10 mg PO DAILY [facility]; Protocol Amlodipine Besylate (Amlodipine Besylate 5 Mg Tablet) 5 mg PO ONCE ONE; Protocol Stop: 06/17/23 10:11 Aspirin (Aspirin Enteric Coated 81 Mg Tablet.) 81 mg PO DAILY [facility] Last Admin: 06/17/23 08:11 Dose: 81 mg Documented By: BREONNA Atorvastatin Calcium (Atorvastatin Calcium 40 Mg Tablet) 40 mg PO DAILY [facility] Last Admin: 06/17/23 08:11 Dose: 40 mg Documented By: BREONNA Dextrose (Dextrose 50 % 25 Gm/50 Ml Syringe) 25 gm IVPUSH Q15M PRN; Protocol PRN Reason: per Hypoglycemia Standing Ord. Empagliflozin (Empagliflozin 25 Mg Tablet) 25 mg PO DAILY [facility] Last Admin: 06/17/23 08:11 Dose: 25 mg Documented By: BREONNA Enoxaparin Sodium (Enoxaparin Sodium 40 Mg/0.4 Ml Syringe) 40 mg SUBCUT Q24H [facility] Last Admin: 06/17/23 08:12 Dose: 40 mg Documented By: BREONNA Glucose (Glucose Gel 15 Gm Gel..Gram.) 15 gm PO Q15M PRN; Protocol PRN Reason: per Hypoglycemia Standing Ord. Ceftriaxone Sodium 2 gm/ (Sodium Chloride) 50 mls @ 100 mls/hr IV Q24H [facility] Last Infusion: 06/16/23 16:56 Dose: Infused Documented By: CLINTON Insulin Glargine (Insulin Glargine,Hum.Rec.Anlog 100 Unit/Ml 10 Ml Vial) 12 unit SUBCUT BEDTIME [facility] Last Admin: 06/16/23 21:08 Dose: 12 unit Documented By: KESHA Insulin Human Lispro (Insulin Lispro 100 Unit/Ml 3 Ml Vial) 0 unit SUBCUT QIDACHS [facility]; Protocol Last Admin: 06/17/23 07:38 Dose: Not Given Documented By: BREONNA Non-Admin Reason: No Insulin Coverage Loperamide HCl (Loperamide Hcl 2 Mg Capsule) 2 mg PO Q6H PRN PRN Reason: Diarrhea Last Admin: 06/16/23 21:08 Dose: 2 mg Documented By: KESHA Losartan Potassium (Losartan Potassium 50 Mg Tablet) 50 mg PO DAILY [facility]; Protocol Losartan Potassium (Losartan Potassium 25 Mg Tablet) 25 mg PO ONCE ONE; Protocol Stop: 06/17/23 10:11 Melatonin (Melatonin 3 Mg Tablet) 6 mg PO BEDTIME PRN PRN Reason: Insomnia Last Admin: 06/16/23 21:08 Dose: 6 mg Documented By: KESHA Metformin HCl (Metformin Hcl Er 500 Mg Tab.Er.24h) 500 mg PO DAILY [facility] Last Admin: 06/17/23 08:11 Dose: 500 mg Documented By: BREONNA Methadone HCl (Methadone Hcl 20 Mg/2 Ml Oral.Conc) 100 mg PO DAILY [facility] Last Admin: 06/17/23 08:11 Dose: 100 mg Documented By: BREONNA Non-Formulary Medication (Dulaglutide [Trulicity]) 4.5 mg SUBCUT SA [facility] Omeprazole (Omeprazole 40 Mg Capsule.Dr) 40 mg PO BID [facility] Last Admin: 06/17/23 08:11 Dose: 40 mg Documented By: BREONNA Ondansetron HCl (Ondansetron Hcl 4 Mg/2 Ml Vial) 4 mg IVPUSH Q8H PRN PRN Reason: Nausea and Vomiting Pregabalin (Pregabalin 150 Mg Capsule) 300 mg PO BID [facility] Last Admin: 06/17/23 08:10 Dose: 300 mg Documented By: BREONNA Sodium Chloride (0.9 % Sodium Chloride Flush 3 Ml Syringe) 3 ml IVFLUSH QSHIFT [facility] Last Admin: 06/17/23 08:10 Dose: 3 ml Documented By: BREONNA Venlafaxine HCl (Venlafaxine Hcl Er 75 Mg Cap.Er.24h) 75 mg PO DAILY [facility] Last Admin: 06/17/23 08:11 Dose: 75 mg Documented By: BREONNA Venlafaxine HCl (Venlafaxine Hcl Er 150 Mg Cap.Er.24h) 150 mg PO DAILY [facility] Last Admin: 06/17/23 08:11 Dose: 150 mg Documented By: BREONNA <Zulema Waterman PA-C - Last Filed: 06/17/23 10:21> Labs CBC & Chem 7: 06/11/23 04:54 06/14/23 05:48 <Zulema Waterman PA-C - Last Filed: 06/17/23 10:21> Labs: Laboratory Results - last 24 hr 06/16/23 06/16/23 06/16/23 11:12 16:27 19:41 POC Glucose 120 H 94 150 H 06/17/23 07:23 POC Glucose 118 H <Zulema Waterman PA-C - Last Filed: 06/17/23 10:21> Microbiology Microbiology Results: Microbiology 06/14/23 15:51 Blood Culture - Preliminary Blood - Venous No growth after 48 hours. 06/14/23 15:51 Blood Culture - Preliminary Blood - Venous No growth after 48 hours. <Zulema Waterman PA-C - Last Filed: 06/17/23 10:21> Procedures Date of Service Date of Service: 06/17/23 <Zulema Waterman PA-C - Last Filed: 06/17/23 10:21> 06/17/23 <Jake Sanchez MD - Last Filed: 06/17/23 13:12> Progress Note: A&P Assessment and plan (1) Non-healing ulcer: Status: Acute <Zulema Waterman PA-C - Last Filed: 06/17/23 10:21> (2) Cellulitis of foot, right: Status: Acute <Zulema Waterman PA-C - Last Filed: 06/17/23 10:21> Assessment and Plan: I agree with LICO torresay to follow-up in the office as needed <Jake Sanchez MD - Last Filed: 06/17/23 13:12> Assessment and Plan: CT foot over weekend performed due to persistent pain with concern for right plantar foot abscess but I&D at bedside negative. Patient's continued pain is at the lateral aspect of her foot and not anywhere the site of concern. The ulcer site and skin breakdown remains clean appearing. There is some mild edema on the dorsal aspect but not suggestive of an abscess and away from the area of concern on CT. Her pain is likely from ambulating on the lateral aspect of her foot to avoid pressure on the ulcer site. Off loading shoe encouraged and follow up at the wound care center for further care. Can continue silver alginate at the skin breakdown between first and second toes followed by fluff and kerlix wrap. Patient comfortable with plan. <Zulema Waterman PA-C - Last Filed: 06/17/23 10:21> Time Spent With Patient Time: Total time managing care of this patient today ____ minutes. <Zulema Waterman PA-C - Last Filed: 06/17/23 10:21> Quality Stroke Does the patient have a stroke diagnosis?: No <Zulema Waterman PA-C - Last Filed: 06/17/23 10:21> VTE Prior VTE?: No <Zulema Waterman PA-C - Last Filed: 06/17/23 10:21> VTE Risk Level:: Medical - moderate - high <Zulema Waterman PA-C - Last Filed: 06/17/23 10:21> VTE Device Contraindication: Treatment Not Indicated <Zulema Waterman PA-C - Last Filed: 06/17/23 10:21> VTE Drug Contraindication: N/A - Med Ordered <Zulema Waterman PA-C - Last Filed: 06/17/23 10:21>
[2023-06-17 11:03] LABS: Glucose, Whole Blood 192 mg/dL (60-115)
[2023-06-17] MEDS: Insulin Lispro 100 UNIT/ML 3 ML VIAL SUBCUT (11:49)
[2023-06-17 12:51] VITALS: BP 154/88; PULSE 101
== END 2023-06-17 13:20 | disposition home health service (06) | DRG 872 ==
LOC: HO.ED 20:19 → HO.EDOVER 21:26 → HO.S3 06-13 09:00
PROVIDERS: Physician Assistant; Admitting Provider Student in an Organized Health Care Education/Training Program; Emergency Provider Student in an Organized Health Care Education/Training Program; PCP Internal Medicine; Visit Provider Internal Medicine
DX: A41.9 Sepsis, unspecified organism (principal); F11.20 Opioid dependence, uncomplicated; L03.115 Cellulitis of right lower limb; L97.411 Non-pressure chronic ulcer of right heel and midfoot limited to breakdown of skin; E78.2 Mixed hyperlipidemia; E11.628 Type 2 diabetes mellitus with other skin complications; E66.9 Obesity, unspecified; Z68.39 Body mass index [BMI] 39.0-39.9, adult; F39 Unspecified mood [affective] disorder; G47.33 Obstructive sleep apnea (adult) (pediatric); K21.9 Gastro-esophageal reflux disease without esophagitis; F17.210 Nicotine dependence, cigarettes, uncomplicated; Z91.199 Patient's noncompliance with other medical treatment and regimen due to unspecified reason; E11.621 Type 2 diabetes mellitus with foot ulcer; B95.1 Streptococcus, group B, as the cause of diseases classified elsewhere; Z96.82 Presence of neurostimulator; Z23 Encounter for immunization; Z71.6 Tobacco abuse counseling; Z79.4 Long term (current) use of insulin; Z79.82 Long term (current) use of aspirin; Z79.85 Long-term (current) use of injectable non-insulin antidiabetic drugs; Z79.899 Other long term (current) drug therapy
CPT/HCPCS: 36415; 73630; 73701; 80048; 80053; 80202; 82565; 82947; 83605; 83690; 85025; 85652; 86140; 87040; 87147; 87205; 87493; 90686; 99285; J0696; J1650; J2543; J3370; Q9967

== ENCOUNTER → 2023-06-10 21:12 | Outpatient (BNV) | payer OTHER, SELFPAY | PROVIDERS: Admitting Provider Student in an Organized Health Care Education/Training Program; Emergency Provider Student in an Organized Health Care Education/Training Program; PCP Internal Medicine; Visit Provider Student in an Organized Health Care Education/Training Program | DX: L03.115 Cellulitis of right lower limb (principal); E11.622 Type 2 diabetes mellitus with other skin ulcer; L98.499 Non-pressure chronic ulcer of skin of other sites with unspecified severity; Z79.4 Long term (current) use of insulin; E78.2 Mixed hyperlipidemia; I10 Essential (primary) hypertension; F39 Unspecified mood [affective] disorder | CPT/HCPCS: 99222; 99232; 99233; 99239 ==

== ENCOUNTER → 2023-06-10 21:12 | Outpatient (BNV) | payer OTHER, SELFPAY | PROVIDERS: Admitting Provider Student in an Organized Health Care Education/Training Program; Emergency Provider Student in an Organized Health Care Education/Training Program; PCP Internal Medicine; Visit Provider Internal Medicine | DX: L98.499 Non-pressure chronic ulcer of skin of other sites with unspecified severity (principal); L03.115 Cellulitis of right lower limb | CPT/HCPCS: 99222 ==

== ENCOUNTER → 2023-06-10 21:12 | Outpatient (BNV) | payer OTHER, SELFPAY | PROVIDERS: Admitting Provider Student in an Organized Health Care Education/Training Program; Emergency Provider Student in an Organized Health Care Education/Training Program; PCP Internal Medicine; Visit Provider Physician Assistant Surgical | DX: L98.499 Non-pressure chronic ulcer of skin of other sites with unspecified severity (principal); L03.115 Cellulitis of right lower limb | CPT/HCPCS: 10060; 99024; 99222; 99232 ==